=== PATIENT | female | born 1940 ===

== ENCOUNTER 2023-11-02 20:14 | Inpatient (IN) | payer MEDICARE, OTHER, SELFPAY ==
[2023-11-02 22:59] VITALS: BMI 25.4
[2023-11-02 23:00] VITALS: BP 163/74; PULSE 72; RESP 18; TEMP 36.2; O2SAT 96
--- NOTE | 2023-11-02 23:24 | PC.ADMIT ---
Admitted these 83 y.o. female patient per stretcher accompanied by ambulance staff w/ presenting problems of increase agitation, paranoia, aggression and increase behaviors. Pt arrived in the unit at 20:55h and she is Sec. 12B. Upon admission pt is pleasant on approached and cooperative w/ the admission process although towards the end pt is impatient. Pt is alert and oriented to person, place,time and situation. Skin check done w/ small scabbed area on the L lower arm and a Tattoo on upper R. back. Pt denies SI/HI/anxiety/depression/pain and feels safe in the unit. Pt has HX of general weakness, joint pain, osteoarthritis, bleeding ulcer, hiatal hernia, bladder problems and thyroid disease. Pt is independent in ADL S, ambulation and continent of B&B. No bruises, wounds or open areas noted on skin. Pt said she wears eyeglasses for reading and has upper and lower dentures. Dr. Dru Gunderson and the hospitalist notified of the admission. We ll continue to monitor patient.
--- NOTE | 2023-11-03 07:49 | HO.PSYADMNOT ---
HPI Date of Service: 11/03/23 Chief Complaint: Unspecified dementia, unspecified severity Sources of Information: patient interviewed, chart reviewed and crisis/core team assessment reviewed Additional Sources of Information: HCP- Darren (son) [phone] Shelby- ([id number]) [phone] HPI Subjective Notes: Section 12B Healthcare Proxy: Yes Narrative: Mrs. Almanza is an 83 year-old woman with hx of AD who initially was brought to [facility] on 10/13 due to combative behaviors, paranoid ideas in setting of dementia. She was started on seroquel. She was on observation in their psych obs unit and discharged on 10/30/23 to [facility] where she soon after arriving presented as combative, trying to hit other residents with metal towel dispenser, verbally abusive, trying to get out of the facility. She was brought back to [facility] ED same day. Pertinent labs include, cbc mostly unremarkable, cmp with no electrolytes abnormalities, BUN 14, Cr 0.81, creatinine clearance of 73. UA was negative. EKG on 10/23/23 normal sinus rhythm, non specific T wave abnormality. Qtc 424. She had brain MRI that showed moderate atrophy, periventricular and subcortical white matter and medical right frontal lobe atrophy. Pt seen on the unit. She presents as calm and cooperative but is not oriented to place, month, date or situation. She thinks she came here as volunteer. 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 She denies any physical pain. She reports sleeping and eating well. When asked about depression, she denies. No SI/HI. No overt psychosis or delusions during interview, but pt has been reporting that people are stealing from her. She also has difficulty recognizing family members including boyfriend of 9 years with whom she was living prior to being brought to ED who she thinks is a stranger. Collateral information gather from [id number], Shelby and son Darren, who report that mother has been living with DINA Saenz for 9 years, she has been more confused, not oriented, paranoid that people are stealing from her along from not recognizing Dany and thinking is an intruder. Shelby reports plan is for pt o stabilized from paranoid and combative behaviors and return to [facility]. Medical Evaluation Reviewed: Yes PMF Family History: mother had AD Social History: Pt was and . She has 4 children. 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 Substance History: none Trauma History: None reported. Diagnostics Vital Signs (24Hr): Vital Signs - 24 hr 11/02/23 23:00 Temperature 97.1 F Pulse Rate 72 Respiratory Rate 18 Blood Pressure 163/74 H Pulse Oximetry 96 Oxygen Delivery Method Room Air BMI result Body Mass Index 25.4 Labs 11/03/23 08:06 Meds/Allergies Meds Home Medications ?Medication ?Instructions ?Recorded ?Confirmed ?Type famotidine 40 mg tablet 40 mg PO BID 11/02/23 11/02/23 History hydroxyzine HCl 50 mg tablet 50 mg PO QID PRN Anxiety 11/02/23 11/02/23 History levothyroxine 137 mcg tablet 137 mcg PO QAM 11/02/23 11/02/23 History pantoprazole 40 mg tablet,delayed 40 mg PO QAM 11/02/23 11/02/23 History release propranolol 20 mg tablet 20 mg PO DAILY 11/02/23 11/02/23 History quetiapine 25 mg tablet 25 mg PO BID 11/02/23 11/02/23 History quetiapine 25 mg tablet 25 mg PO Q6H PRN Agitation 11/02/23 11/02/23 History trazodone 50 mg tablet 50 mg PO BEDTIME PRN Insomnia 11/02/23 11/02/23 History trazodone 50 mg tablet 100 mg PO BEDTIME 11/02/23 11/02/23 History Allergies Allergies Allergy/AdvReac Type Severity Reaction Status Date / Time No Known Allergies Allergy Verified 11/02/23 22:07 Mental Status Exam Mental Status Exam Narrative: Appearance: wearing casual clothing, good hygiene, in NAD Behavior: cooperative and friendly Psychomotor: no agitation or retardation noted Speech: clear, normal rate/rhythm/volume, spontaneous TP: linear TC: no overt psychosis or delusions, trying out this place, looks nice Mood: good Affect: congruent SI: none HI: none VH/AH: none Delusions: currently no overt delusions, confabulation noted, possible sundowning with more paranoid delusions Insight/judgment: impaired x 2. Memory/cog: alert, not oriented to place, month, year, date or situation. MOCA completed on 11/02 scored 12/03 with deficits in visuo spatial, executive function, recall, language fluency, orientation. ACL 4.4 Assessment & Plan Assessment & Plan (1) Major neurocognitive disorder due to Alzheimer's disease, with behavioral disturbance: Status: Acute Code(s): G30.9 - Alzheimer's disease, unspecified; F02.818 - Dementia in other diseases classified elsewhere, unspecified severity, with other behavioral disturbance Plan Mrs. Almanza is a 83 year-old woman with hx of AD who was sent from [facility] due to increase combative behaviors, hitting residens with metal towel dispenser, verbally abusive and thinking people were stealing from her. On the unit, pt presents as pleasant but not oriented to situation, place, month, or year. She does not have capacity to make medical decisions, pending copy of HCP to invoke. Discussed with daughter in law, Shelby and son, Darren that we can start aricept for AD, switch seroquel to risperidone. We also discussed her dementia is advanced. PLAN 1. Admit to S1, sect 12b. Once HCP invoked, HCP can sign CV. 2. start aricept 5mg po qhs 3. d/c seroquel, start risperidone 0.5mg po TID for delusions/agitation. prn olanzapine for agitation. 4. Hospitalist consult for medical H&P- noted SBP in 160's 5. aftercare planning. Patient educated on: diagnosis (and HCP as pt does not have capacity to make medical decisions.) and medication risk/benefits Reason for continued inpatient stay Substantial Risk for: harm to others and inability to function Statement Statement: I have reviewed the history and physical and performed a pertinent examination on my patient. No changes have occurred unless specified. If the History and Physical was not performed prior to admission, the Hospitalist's service will be consulted for completing the admission physical. Time Spent With Patient Time: Total time managing care of this patient today ____ minutes.
[2023-11-03 08:00] VITALS: BP 145/72; PULSE 75; RESP 15; TEMP 36.2; O2SAT 98
[2023-11-03 08:51] LABS: Estimated Average Glucose 117 mg/dL; Hemoglobin A1c % 5.7 % (<6.0)
[2023-11-03 09:00] LABS: Alanine Aminotransferase 9 U/L (0-31); Albumin Level 3.3 g/dL (3.5-5.0); Alkaline Phosphatase 64 U/L (39-117); Anion Gap 10 (12-20); Aspartate Amino Transferase 14 U/L (5-31); Bilirubin Total 0.4 mg/dL (0.0-1.0); Blood Urea Nitrogen 11 mg/dL (9-16); Calcium 9.1 mg/dL (8.4-10.2); Carbon Dioxide 29 mmol/L (22-29); Chloride 109 mmol/L (96-108); Cholesterol 136 mg/dL (<200); Creatinine Clr Calc Pharmacy 55.3; Estimated Glomerular Filt Rate > 60; Glucose Fasting 102 mg/dL (60-99); HDL Cholesterol 23 mg/dL (>40); LDL Cholesterol Calculated 96 mg/dL (<100); Sodium 144 mmol/L (135-145); Total Protein 5.8 g/dL (6.5-8.0); Triglycerides 89 mg/dL (<150)
[2023-11-03 09:16] LABS: TSH reflex Free T4 0.21 uIU/mL (0.32-4.0)
[2023-11-03 11:25] LABS: Free T4 (Free Thyroxine) 1.41 ng/dL (0.71-1.85)
[2023-11-03 13:39] VITALS: BP 148/70
[2023-11-03] MEDS: amLODIPine Besylate 2.5 MG TABLET PO (13:39)
[2023-11-03 13:40] VITALS: BP 148/70; PULSE 80
[2023-11-03] MEDS: Propranolol HCL 20 MG TABLET PO (13:40)
--- NOTE | 2023-11-03 15:54 | HO.PM.IMCN ---
History of Present Illness Data of Consult Service Date: 11/03/23 Primary Care Provider: Unknown Physician HPI Reason for consult: Admission H&P Pt is an 83-year-old female with a PMH significant for?HTN, hypothyroidism, GERD, and unspecified dementia who is admitted to [facility] for increasing agitation and disruptive behavior. Pt came from [facility] after attempted exit seeking, hitting other residents with metal towel dispenser, hitting staff, and displaying paranoid behavior. Medical consult for admission H&P. ?Pt seems calm and cooperative, answering some questions appropriately. Is oriented to person only, not the place, time, or situation. Pt denies any PMH and denies any current acute medical complaints. Review of Systems Review of Systems: Pt denies any acute medical complaints, though is OAx1 only [facility] Medical History (Updated 11/04/23 @ 01:20 by HSANA Jang) Hypothyroidism GERD (gastroesophageal reflux disease) HTN (hypertension) Social History Household Members: Children Housing: House Do you presently have visiting nurse or other home services: No Patient Tobacco Use Status: Former Tobacco user Tobacco use type: Cigarette Smoked in Last 30 Days: No e-Cigarette/Vaping Use: Never Used Patient Interested in Nicotine Replacement: No Patient Given Instructions on How to Stop Smoking: No Use of substances other than those prescribed or required for medical reasons: No Currently Displaying Signs/Symptoms of Drug Intoxication Withdrawal: No Any prior treatment program specific to substance use: No Have you been hit, kicked, punched, or otherwise hurt by someone within the past year? If so, by whom?: No Do you feel safe in your current relationship?: Yes Is there a partner from a previous relationship who is making you feel unsafe now?: No Are you made to feel afraid or neglected: No Advance Directives: No Advance Directives Information Provided: No Do you have thoughts of harming others: None Do you have a plan to hurt others: No Plan Recently lost weight without trying: No Nutrition Risks: No Nutritional Risk Patient : No : No Poor oral hygiene: No service: No Sexual orientation: Straight/Heterosexual Meds Allergies Allergy/AdvReac Type Severity Reaction Status Date / Time No Known Allergies Allergy Verified 11/02/23 22:07 Active Medications: Current Medications Acetaminophen (Acetaminophen 325 Mg Tablet) 650 mg PO Q6H PRN PRN Reason: Headache/Pain Mild Scale (1-3) Al Hydroxide/Mg Hydroxide (Magnesium Hydrox/Alum Hydrox 30 Ml Oral.Susp) 30 ml PO Q6H PRN PRN Reason: Heartburn/Nausea Amlodipine Besylate (Amlodipine Besylate 2.5 Mg Tablet) 2.5 mg PO DAILY [facility]; Protocol Last Admin: 11/03/23 13:39 Dose: 2.5 mg Donepezil HCl (Donepezil Hcl 5 Mg Tablet) 5 mg PO BEDTIME [facility] Levothyroxine Sodium 112 mcg/ (Levothyroxine Sodium 25 mcg) 137 mcg PO DAILY@0600 [facility] Magnesium Hydroxide (Milk Of Magnesia 30 Ml Oral.Susp) 30 ml PO DAILY PRN PRN Reason: Constipation Nicotine (Nicotine 21 Mg Patch.Td24) 21 mg TRANSDERMA DAILY PRN PRN Reason: smoking cessation Nicotine Polacrilex (Nicotine Polacrilex 2 Mg Gum) 4 mg BUCCAL Q2H PRN PRN Reason: Nicotine Cravings Olanzapine (Olanzapine 5 Mg Tablet) 5 mg PO Q4H PRN PRN Reason: agitation Propranolol HCl (Propranolol Hcl 20 Mg Tablet) 20 mg PO DAILY [facility]; Protocol Last Admin: 11/03/23 13:40 Dose: 20 mg Risperidone (Risperidone 0.5 Mg Tablet) 0.5 mg PO TID [facility] Trazodone HCl (Trazodone Hcl 50 Mg Tablet) 50 mg PO BEDTIME MRX1 PRN PRN Reason: Insomnia Home Medications ?Medication ?Instructions ?Recorded ?Confirmed ?Last Taken ?Type famotidine 40 mg tablet 40 mg PO BID 11/02/23 11/02/23 Unknown History hydroxyzine HCl 50 mg tablet 50 mg PO QID PRN Anxiety 11/02/23 11/02/23 Unknown History levothyroxine 137 mcg tablet 137 mcg PO QAM 11/02/23 11/02/23 Unknown History pantoprazole 40 mg tablet,delayed 40 mg PO QAM 11/02/23 11/02/23 Unknown History release propranolol 20 mg tablet 20 mg PO DAILY 11/02/23 11/02/23 Unknown History quetiapine 25 mg tablet 25 mg PO BID 11/02/23 11/02/23 Unknown History quetiapine 25 mg tablet 25 mg PO Q6H PRN Agitation 11/02/23 11/02/23 Unknown History trazodone 50 mg tablet 50 mg PO BEDTIME PRN Insomnia 11/02/23 11/02/23 Unknown History trazodone 50 mg tablet 100 mg PO BEDTIME 11/02/23 11/02/23 Unknown History Physical Exam Vital Signs and Narrative: Vital Signs: Last Vital Signs Temp 97.2 F 11/03/23 08:00 Pulse 80 11/03/23 13:40 Resp 15 11/03/23 08:00 BP 148/70 H 11/03/23 13:40 Pulse Ox 98 11/03/23 08:00 O2 Del Method Room Air 11/03/23 08:00 BMI result Body Mass Index 25.4 General: AOx1, no acute distress Resp: CTA bilaterally CVS: S1, S2, RRR GI: +BS, NT, no distention Skin: Warm, dry Neuro: Cranial nerves II-XII grossly intact bilaterally. Motor grossly intact bilaterally Extremities: No edema Psych: Appropriate affect Results Labs 11/03/23 08:06 Labs: Laboratory Results - last 24 hr 11/03/23 08:06 Anion Gap 10 L Estim Creat Clear Calc 55.3 Estimated GFR > 60 Fasting Glucose 102 H Estimat Average Glucose 117 Hemoglobin A1c % 5.7 Calcium 9.1 Total Bilirubin 0.4 AST 14 ALT 9 Alkaline Phosphatase 64 Total Protein 5.8 L Albumin 3.3 L Triglycerides 89 Cholesterol 136 LDL Cholesterol, Calc 96 HDL Cholesterol 23 L TSH 0.21 L Free T4 1.41 Assessment and Plan (1) Medical clearance for psychiatric admission: Status: Acute Plan Pt is an 83-year-old female with a PMH significant for?HTN, hypothyroidism, GERD, and unspecified dementia who is admitted to [facility] for increasing agitation and disruptive behavior. Pt came from [facility] care unit after attempted exit seeking, hitting other residents with metal towel dispenser, hitting staff, and displaying paranoid behavior. Medical consult for admission H&P. Mood disorder Plan as per psychiatry HTN Continue propranolol Hypothyroidsim Continue levothyroxine GERD PPI Thank you for allowing us to participate in the care of this patient. Signing off at this time. Please re-consult if any acute complaints or issues arise.
[2023-11-03] MEDS: risperiDONE 0.5 MG TABLET PO ×2 (16:47→20:42)
[2023-11-03 20:00] VITALS: BP 175/68; PULSE 75; RESP 16; TEMP 36.4; O2SAT 93
[2023-11-03] MEDS: Donepezil HCl 5 MG TABLET PO (20:42)
[2023-11-04] MEDS: Levothyroxine Sodium 112 MCG, Levothyroxine Sodium 25 MCG 137 MCG PO (06:41)
--- NOTE | 2023-11-04 08:57 | HO.PSYCHPN ---
Subjective Subjective Date of Service: 11/04/23 Reason For Visit: Unspecified dementia, unspecified severity Interim History: Pt seen, reviewed with team. I am well, thank you for coming to meet with us (Pt enjoys room-mate and asks to meet with her present). Team reports some agitation last evening, with adequate sleep. Pt denies any symptoms, states she is well, comfortable on the unit, but finds the air conditioning too cold. Medication Compliance: Yes Side effects from medications: No Attending Groups: Intermittent Review of Systems Acute medical concerns: No Medical Review of Systems: unchanged Review of Systems Review of Systems Yes all other systems are reviewed and are negative (denies) Mental Status Exam Mental Status Exam Patient Appearance: Appropriate Patient Orientation: Person Level of Consciousness: Alert Patient Behavior: Appropriate, Talkative, Cooperative, Confused and Good Eye Contact Mood Description: Appropriate Affect Description: Appropriate Patient Cognition Impaired: Yes Ability to Follow Directions: Fair Speech Pattern: Spontaneous Speech Memory Description: Remote Impaired Hallucinations: None Delusions: Not Present Thought Process: Confusion Thought Content: positive for Circumstantial Judgement: Poor Diagnostics Vital Signs (24Hr): Vital Signs - 24 hr 11/03/23 13:39 11/03/23 13:40 11/03/23 20:00 Temperature 97.5 F Pulse Rate 80 75 Respiratory Rate 16 Blood Pressure 148/70 H 148/70 H 175/68 H Pulse Oximetry 93 Oxygen Delivery Method Room Air BMI result Body Mass Index 25.4 Labs 11/03/23 08:06 Labs: Laboratory Results - last 48 hr 11/03/23 08:06 Sodium 144 Potassium 4.0 Chloride 109 H Carbon Dioxide 29 Anion Gap 10 L BUN 11 Creatinine 0.75 Estim Creat Clear Calc 55.3 Estimated GFR > 60 Fasting Glucose 102 H Estimat Average Glucose 117 Hemoglobin A1c % 5.7 Calcium 9.1 Total Bilirubin 0.4 AST 14 ALT 9 Alkaline Phosphatase 64 Total Protein 5.8 L Albumin 3.3 L Triglycerides 89 Cholesterol 136 LDL Cholesterol, Calc 96 HDL Cholesterol 23 L TSH 0.21 L Free T4 1.41 Medications Medications Current Medications Acetaminophen (Acetaminophen 325 Mg Tablet) 650 mg PO Q6H PRN PRN Reason: Headache/Pain Mild Scale (1-3) Al Hydroxide/Mg Hydroxide (Magnesium Hydrox/Alum Hydrox 30 Ml Oral.Susp) 30 ml PO Q6H PRN PRN Reason: Heartburn/Nausea Amlodipine Besylate (Amlodipine Besylate 2.5 Mg Tablet) 2.5 mg PO DAILY [facility]; Protocol Last Admin: 11/03/23 13:39 Dose: 2.5 mg Donepezil HCl (Donepezil Hcl 5 Mg Tablet) 5 mg PO BEDTIME [facility] Last Admin: 11/03/23 20:42 Dose: 5 mg Levothyroxine Sodium 112 mcg/ (Levothyroxine Sodium 25 mcg) 137 mcg PO DAILY@0600 [facility] Last Admin: 11/04/23 06:41 Dose: 137 mcg Magnesium Hydroxide (Milk Of Magnesia 30 Ml Oral.Susp) 30 ml PO DAILY PRN PRN Reason: Constipation Nicotine (Nicotine 21 Mg Patch.Td24) 21 mg TRANSDERMA DAILY PRN PRN Reason: smoking cessation Nicotine Polacrilex (Nicotine Polacrilex 2 Mg Gum) 4 mg BUCCAL Q2H PRN PRN Reason: Nicotine Cravings Olanzapine (Olanzapine 5 Mg Tablet) 5 mg PO Q4H PRN PRN Reason: agitation Propranolol HCl (Propranolol Hcl 20 Mg Tablet) 20 mg PO DAILY [facility]; Protocol Last Admin: 11/03/23 13:40 Dose: 20 mg Risperidone (Risperidone 0.5 Mg Tablet) 0.5 mg PO TID [facility] Last Admin: 11/03/23 20:42 Dose: 0.5 mg Trazodone HCl (Trazodone Hcl 50 Mg Tablet) 50 mg PO BEDTIME MRX1 PRN PRN Reason: Insomnia Allergies Allergies Allergy/AdvReac Type Severity Reaction Status Date / Time No Known Allergies Allergy Verified 11/02/23 22:07 Assessment & Plan Assessment & Plan (1) Major neurocognitive disorder due to Alzheimer's disease, with behavioral disturbance: Status: Acute Code(s): G30.9 - Alzheimer's disease, unspecified; F02.818 - Dementia in other diseases classified elsewhere, unspecified severity, with other behavioral disturbance Assessment and Plan: 11/03: Continue tx Plan Pt is an 83-year-old female with a PMH significant for?HTN, hypothyroidism, GERD, and unspecified dementia who is admitted to [facility] for increasing agitation and disruptive behavior. Pt came from [facility] care unit after attempted exit seeking, hitting other residents with metal towel dispenser, hitting staff, and displaying paranoid behavior. Medical consult for admission H&P. Mood disorder Plan as per psychiatry HTN Continue propranolol Hypothyroidsim Continue levothyroxine GERD PPI Thank you for allowing us to participate in the care of this patient. Signing off at this time. Please re-consult if any acute complaints or issues arise. Reason for continued inpatient stay Substantial Risk for: rapid decompensation Time Spent With Patient Time: Total time managing care of this patient today ____ minutes.
[2023-11-04 09:27] VITALS: BP 133/61; PULSE 71; RESP 20; TEMP 36.2; O2SAT 95
[2023-11-04] MEDS: Propranolol HCL 20 MG TABLET PO (09:46)
[2023-11-04] MEDS: amLODIPine Besylate 2.5 MG TABLET PO (09:47)
[2023-11-04] MEDS: risperiDONE 0.5 MG TABLET PO ×3 (09:47→20:36)
[2023-11-04 20:00] VITALS: BP 143/67; PULSE 77; RESP 16; TEMP 36.3; O2SAT 96
[2023-11-04] MEDS: Donepezil HCl 5 MG TABLET PO (20:36)
[2023-11-05] MEDS: Levothyroxine Sodium 112 MCG, Levothyroxine Sodium 25 MCG 137 MCG PO (06:20)
[2023-11-05 08:01] VITALS: BP 129/66; PULSE 84; RESP 20; TEMP 36.4; O2SAT 98
[2023-11-05] MEDS: Propranolol HCL 20 MG TABLET PO (08:03)
[2023-11-05] MEDS: amLODIPine Besylate 2.5 MG TABLET PO (08:03)
[2023-11-05] MEDS: risperiDONE 0.5 MG TABLET PO ×3 (08:03→20:02)
--- NOTE | 2023-11-05 16:18 | P.PNPSI_ITS ---
Subjective Subjective Date of Service: 11/05/23 Reason For Visit: Unspecified dementia, unspecified severity Interim History: Pt seen, reviewed with team who reports increase in confusion. Pt also has head tremor which is noticed by team and tw today. Will trial benztropine 0.5 mg prn x 1 Pt again denies sx of concern, reports no depression, anxiety, irritability. She continues to spend time with room-mate and seems to received needed structure from room-mate. Review of Systems Review of Systems head tremor Yes all other systems are reviewed and are negative (denies) Mental Status Exam Mental Status Exam Patient Appearance: Appropriate Patient Orientation: Person Level of Consciousness: Alert Patient Behavior: Appropriate, Talkative, Cooperative, Confused and Good Eye Contact Mood Description: Appropriate Affect Description: Appropriate Patient Cognition Impaired: Yes Ability to Follow Directions: Fair Speech Pattern: Spontaneous Speech Memory Description: Remote Impaired Hallucinations: None Delusions: Not Present Thought Process: Confusion Thought Content: positive for Circumstantial Judgement: Poor Diagnostics Vital Signs (24Hr): Vital Signs - 24 hr 11/04/23 20:00 11/05/23 08:01 Temperature 97.3 F 97.5 F Pulse Rate 77 84 Respiratory Rate 16 20 Blood Pressure 143/67 H 129/66 Pulse Oximetry 96 98 Oxygen Delivery Method Room Air Room Air BMI result Body Mass Index 25.4 Labs 11/03/23 08:06 Medications Medications Current Medications Acetaminophen (Acetaminophen 325 Mg Tablet) 650 mg PO Q6H PRN PRN Reason: Headache/Pain Mild Scale (1-3) Al Hydroxide/Mg Hydroxide (Magnesium Hydrox/Alum Hydrox 30 Ml Oral.Susp) 30 ml PO Q6H PRN PRN Reason: Heartburn/Nausea Amlodipine Besylate (Amlodipine Besylate 2.5 Mg Tablet) 2.5 mg PO DAILY [facility]; Protocol Last Admin: 11/05/23 08:03 Dose: 2.5 mg Benztropine Mesylate (Benztropine Mesylate 0.5 Mg Tablet) 0.5 mg PO DAILY PRN PRN Reason: Extrapyramidal Effects Donepezil HCl (Donepezil Hcl 5 Mg Tablet) 5 mg PO BEDTIME [facility] Last Admin: 11/04/23 20:36 Dose: 5 mg Levothyroxine Sodium 112 mcg/ (Levothyroxine Sodium 25 mcg) 137 mcg PO DAILY@0600 [facility] Last Admin: 11/05/23 06:20 Dose: 137 mcg Magnesium Hydroxide (Milk Of Magnesia 30 Ml Oral.Susp) 30 ml PO DAILY PRN PRN Reason: Constipation Nicotine (Nicotine 21 Mg Patch.Td24) 21 mg TRANSDERMA DAILY PRN PRN Reason: smoking cessation Nicotine Polacrilex (Nicotine Polacrilex 2 Mg Gum) 4 mg BUCCAL Q2H PRN PRN Reason: Nicotine Cravings Olanzapine (Olanzapine 5 Mg Tablet) 5 mg PO Q4H PRN PRN Reason: agitation Propranolol HCl (Propranolol Hcl 20 Mg Tablet) 20 mg PO DAILY [facility]; Protocol Last Admin: 11/05/23 08:03 Dose: 20 mg Risperidone (Risperidone 0.5 Mg Tablet) 0.5 mg PO TID [facility] Last Admin: 11/05/23 15:13 Dose: 0.5 mg Trazodone HCl (Trazodone Hcl 50 Mg Tablet) 50 mg PO BEDTIME MRX1 PRN PRN Reason: Insomnia Allergies Allergies Allergy/AdvReac Type Severity Reaction Status Date / Time No Known Allergies Allergy Verified 11/02/23 22:07 Assessment & Plan Assessment & Plan (1) Medical clearance for psychiatric admission: Status: Acute Code(s): Z00.8 - Encounter for other general examination (2) Major neurocognitive disorder due to Alzheimer's disease, with behavioral disturbance: Status: Acute Code(s): G30.9 - Alzheimer's disease, unspecified; F02.818 - Dementia in other diseases classified elsewhere, unspecified severity, with other behavioral disturbance Assessment and Plan: 11/04: Continue tx. Plan Pt is an 83-year-old female with a PMH significant for?HTN, hypothyroidism, GERD, and unspecified dementia who is admitted to [facility] for increasing agitation and disruptive behavior. Pt came from [facility] memory care unit after attempted exit seeking, hitting other residents with metal towel dispenser, hitting staff, and displaying paranoid behavior. Medical consult for admission H&P. Mood disorder Plan as per psychiatry HTN Continue propranolol Hypothyroidsim Continue levothyroxine GERD PPI Thank you for allowing us to participate in the care of this patient. Signing off at this time. Please re-consult if any acute complaints or issues arise. Reason for continued inpatient stay Substantial Risk for: rapid decompensation Time Spent With Patient Time: Total time managing care of this patient today ____ minutes.
[2023-11-05 20:00] VITALS: BP 123/58; PULSE 80; RESP 16; TEMP 36.3; O2SAT 94
[2023-11-05] MEDS: Donepezil HCl 5 MG TABLET PO (20:01)
[2023-11-06] MEDS: traZODone HCL 50 MG TABLET PO (00:41)
[2023-11-06] MEDS: Levothyroxine Sodium 112 MCG, Levothyroxine Sodium 25 MCG 137 MCG PO (06:29)
[2023-11-06 08:00] VITALS: BP 152/63; PULSE 85; RESP 18; TEMP 36.2; O2SAT 97
[2023-11-06 08:30] VITALS: BP 152/63; PULSE 85
[2023-11-06] MEDS: Propranolol HCL 20 MG TABLET PO (08:30)
[2023-11-06 08:31] VITALS: BP 152/63
[2023-11-06] MEDS: amLODIPine Besylate 2.5 MG TABLET PO (08:31)
[2023-11-06] MEDS: risperiDONE 0.5 MG TABLET PO ×3 (08:31→20:52)
--- NOTE | 2023-11-06 08:39 | P.PNPSI_ITS ---
Subjective Subjective Date of Service: 11/06/23 Reason For Visit: Unspecified dementia, unspecified severity Interim History: Met with pt, reviewed with her team. She reports poor sleep last night as she states she is reading [employer] which she finds interesting. She reviewed the plot. Well engaged with her room-mate. Room-mate reports pt has been awake most of the evening/night and with frequent BRIANNA Medication Compliance: Yes Side effects from medications: No Attending Groups: Intermittent Review of Systems Acute medical concerns: No Medical Review of Systems: unchanged Review of Systems Review of Systems Yes all other systems are reviewed and are negative (denies) Mental Status Exam Mental Status Exam Patient Appearance: Appropriate Patient Orientation: Person Level of Consciousness: Alert Patient Behavior: Appropriate, Talkative, Cooperative, Confused and Good Eye Contact Mood Description: Appropriate Affect Description: Appropriate Patient Cognition Impaired: Yes Ability to Follow Directions: Fair Speech Pattern: Spontaneous Speech Memory Description: Remote Impaired Hallucinations: None Delusions: Not Present Thought Process: Confusion Thought Content: positive for Circumstantial Judgement: Poor Diagnostics Vital Signs (24Hr): Vital Signs - 24 hr 11/05/23 20:00 11/06/23 08:30 11/06/23 08:31 Temperature 97.3 F Pulse Rate 80 85 Respiratory Rate 16 Blood Pressure 123/58 L 152/63 H 152/63 H Pulse Oximetry 94 Oxygen Delivery Method Room Air BMI result Body Mass Index 25.4 Labs 11/03/23 08:06 Medications Medications Current Medications Acetaminophen (Acetaminophen 325 Mg Tablet) 650 mg PO Q6H PRN PRN Reason: Headache/Pain Mild Scale (1-3) Al Hydroxide/Mg Hydroxide (Magnesium Hydrox/Alum Hydrox 30 Ml Oral.Susp) 30 ml PO Q6H PRN PRN Reason: Heartburn/Nausea Amlodipine Besylate (Amlodipine Besylate 2.5 Mg Tablet) 2.5 mg PO DAILY [facility]; Protocol Last Admin: 11/06/23 08:31 Dose: 2.5 mg Benztropine Mesylate (Benztropine Mesylate 0.5 Mg Tablet) 0.5 mg PO DAILY PRN PRN Reason: Extrapyramidal Effects Donepezil HCl (Donepezil Hcl 5 Mg Tablet) 5 mg PO BEDTIME [facility] Last Admin: 11/05/23 20:01 Dose: 5 mg Levothyroxine Sodium 112 mcg/ (Levothyroxine Sodium 25 mcg) 137 mcg PO DAILY@0600 [facility] Last Admin: 11/06/23 06:29 Dose: 137 mcg Magnesium Hydroxide (Milk Of Magnesia 30 Ml Oral.Susp) 30 ml PO DAILY PRN PRN Reason: Constipation Nicotine (Nicotine 21 Mg Patch.Td24) 21 mg TRANSDERMA DAILY PRN PRN Reason: smoking cessation Nicotine Polacrilex (Nicotine Polacrilex 2 Mg Gum) 4 mg BUCCAL Q2H PRN PRN Reason: Nicotine Cravings Olanzapine (Olanzapine 5 Mg Tablet) 5 mg PO Q4H PRN PRN Reason: agitation Propranolol HCl (Propranolol Hcl 20 Mg Tablet) 20 mg PO DAILY [facility]; Protocol Last Admin: 11/06/23 08:30 Dose: 20 mg Risperidone (Risperidone 0.5 Mg Tablet) 0.5 mg PO TID [facility] Last Admin: 11/06/23 08:31 Dose: 0.5 mg Trazodone HCl (Trazodone Hcl 50 Mg Tablet) 50 mg PO BEDTIME MRX1 PRN PRN Reason: Insomnia Last Admin: 11/06/23 00:41 Dose: 50 mg Allergies Allergies Allergy/AdvReac Type Severity Reaction Status Date / Time No Known Allergies Allergy Verified 11/02/23 22:07 Assessment & Plan Assessment & Plan (1) Medical clearance for psychiatric admission: Status: Acute Code(s): Z00.8 - Encounter for other general examination (2) Major neurocognitive disorder due to Alzheimer's disease, with behavioral disturbance: Status: Acute Code(s): G30.9 - Alzheimer's disease, unspecified; F02.818 - Dementia in other diseases classified elsewhere, unspecified severity, with other behavioral disturbance Assessment and Plan: 11/04: Continue tx. 11/05: Continue tx. PRN Olanzapine for agitation is ordered. Plan Pt is an 83-year-old female with a PMH significant for?HTN, hypothyroidism, GERD, and unspecified dementia who is admitted to [facility] for increasing agitation and disruptive behavior. Pt came from [facility] memory care unit after attempted exit seeking, hitting other residents with metal towel dispenser, hitting staff, and displaying paranoid behavior. Medical consult for admission H&P. Mood disorder Plan as per psychiatry HTN Continue propranolol Hypothyroidsim Continue levothyroxine GERD PPI Thank you for allowing us to participate in the care of this patient. Signing off at this time. Please re-consult if any acute complaints or issues arise. Reason for continued inpatient stay Substantial Risk for: med/psych decompensation Time Spent With Patient Time: Total time managing care of this patient today ____ minutes.
[2023-11-06 20:00] VITALS: BP 130/58; PULSE 76; RESP 16; TEMP 37.1; O2SAT 94
[2023-11-06] MEDS: Donepezil HCl 5 MG TABLET PO (20:52)
[2023-11-07] MEDS: Levothyroxine Sodium 112 MCG, Levothyroxine Sodium 25 MCG 137 MCG PO (06:37)
--- NOTE | 2023-11-07 09:16 | HO.PSYCHPN ---
Subjective Subjective Date of Service: 11/07/23 Reason For Visit: Unspecified dementia, unspecified severity Subjective Notes: Conditional Voluntary Healthcare Proxy: Yes Interim History: Pt slept only few hours at times. Pt tearful thinking son is stealing from her and taking her bank account. She is confused as to why she is here, thinks she has been here for 2 months. Not oriented to place, situation. reassured that son is trying to help her with memory/cognitive impairments as she is not able to care for herself. No SI/HI. Review of Systems Review of Systems head tremor Yes all other systems are reviewed and are negative (denies) Mental Status Exam Mental Status Exam Narrative: Appearance: wearing casual clothing, good hygiene, in NAD Behavior: cooperative and friendly Psychomotor: no agitation or retardation noted Speech: clear, normal rate/rhythm/volume, spontaneous TP: linear TC: no overt psychosis or delusions, trying out this place, looks nice Mood: good Affect: congruent SI: none HI: none VH/AH: none Delusions: currently no overt delusions, confabulation noted, possible sundowning with more paranoid delusions Insight/judgment: impaired x 2. Memory/cog: alert, not oriented to place, month, year, date or situation. MOCA completed on 11/02 scored 12/03 with deficits in visuo spatial, executive function, recall, language fluency, orientation. ACL 4.4 Diagnostics Vital Signs (24Hr): Vital Signs - 24 hr 11/06/23 20:00 Temperature 98.7 F Pulse Rate 76 Respiratory Rate 16 Blood Pressure 130/58 L Pulse Oximetry 94 Oxygen Delivery Method Room Air BMI result Body Mass Index 25.4 Labs 11/03/23 08:06 Medications Medications Current Medications Acetaminophen (Acetaminophen 325 Mg Tablet) 650 mg PO Q6H PRN PRN Reason: Headache/Pain Mild Scale (1-3) Al Hydroxide/Mg Hydroxide (Magnesium Hydrox/Alum Hydrox 30 Ml Oral.Susp) 30 ml PO Q6H PRN PRN Reason: Heartburn/Nausea Amlodipine Besylate (Amlodipine Besylate 2.5 Mg Tablet) 2.5 mg PO DAILY [facility]; Protocol Last Admin: 11/06/23 08:31 Dose: 2.5 mg Benztropine Mesylate (Benztropine Mesylate 0.5 Mg Tablet) 0.5 mg PO DAILY PRN PRN Reason: Extrapyramidal Effects Donepezil HCl (Donepezil Hcl 5 Mg Tablet) 5 mg PO BEDTIME [facility] Last Admin: 11/06/23 20:52 Dose: 5 mg Levothyroxine Sodium 112 mcg/ (Levothyroxine Sodium 25 mcg) 137 mcg PO DAILY@0600 [facility] Last Admin: 11/07/23 06:37 Dose: 137 mcg Magnesium Hydroxide (Milk Of Magnesia 30 Ml Oral.Susp) 30 ml PO DAILY PRN PRN Reason: Constipation Nicotine (Nicotine 21 Mg Patch.Td24) 21 mg TRANSDERMA DAILY PRN PRN Reason: smoking cessation Nicotine Polacrilex (Nicotine Polacrilex 2 Mg Gum) 4 mg BUCCAL Q2H PRN PRN Reason: Nicotine Cravings Olanzapine (Olanzapine 5 Mg Tablet) 5 mg PO Q4H PRN PRN Reason: agitation Propranolol HCl (Propranolol Hcl 20 Mg Tablet) 20 mg PO DAILY [facility]; Protocol Last Admin: 11/06/23 08:30 Dose: 20 mg Risperidone (Risperidone 0.5 Mg Tablet) 0.5 mg PO TID [facility] Last Admin: 11/06/23 20:52 Dose: 0.5 mg Trazodone HCl (Trazodone Hcl 50 Mg Tablet) 50 mg PO BEDTIME MRX1 PRN PRN Reason: Insomnia Last Admin: 11/06/23 00:41 Dose: 50 mg Allergies Allergies Allergy/AdvReac Type Severity Reaction Status Date / Time No Known Allergies Allergy Verified 11/02/23 22:07 Assessment & Plan Assessment & Plan (1) Major neurocognitive disorder due to Alzheimer's disease, with behavioral disturbance: Status: Acute Code(s): G30.9 - Alzheimer's disease, unspecified; F02.818 - Dementia in other diseases classified elsewhere, unspecified severity, with other behavioral disturbance Assessment and Plan: 11/04: Continue tx. 11/05: Continue tx. PRN Olanzapine for agitation is ordered. Plan Pt is an 83-year-old female with a PMH significant for?HTN, hypothyroidism, GERD, and unspecified dementia who is admitted to [facility] for increasing agitation and disruptive behavior. Pt came from [facility] care unit after attempted exit seeking, hitting other residents with metal towel dispenser, hitting staff, and displaying paranoid behavior. Medical consult for admission H&P. 11/06 no aggression, taking medications, some bilat action tremors, suspect exacerbated with risperidone. may change to olanzapine Reason for continued inpatient stay Substantial Risk for: inability to function Time Spent With Patient Time: Total time managing care of this patient today ____ minutes.
[2023-11-07 09:34] VITALS: BP 131/71; PULSE 84; RESP 15; TEMP 36.9; O2SAT 99
[2023-11-07] MEDS: Propranolol HCL 20 MG TABLET PO (09:35)
[2023-11-07] MEDS: risperiDONE 0.5 MG TABLET PO ×3 (09:36→21:25)
[2023-11-07] MEDS: amLODIPine Besylate 2.5 MG TABLET PO (09:36)
[2023-11-07 20:00] VITALS: BP 136/66; PULSE 86; RESP 18; TEMP 36.4; O2SAT 97
[2023-11-07] MEDS: Donepezil HCl 5 MG TABLET PO (21:25)
[2023-11-08] MEDS: Levothyroxine Sodium 112 MCG, Levothyroxine Sodium 25 MCG 137 MCG PO (06:25)
[2023-11-08 09:03] VITALS: BP 131/63; PULSE 76; RESP 20; TEMP 36.4; O2SAT 98
[2023-11-08] MEDS: amLODIPine Besylate 2.5 MG TABLET PO (09:05)
[2023-11-08] MEDS: risperiDONE 0.5 MG TABLET PO ×3 (09:05→21:29)
[2023-11-08] MEDS: Propranolol HCL 20 MG TABLET PO (09:05)
--- NOTE | 2023-11-08 15:11 | HO.PSYCHPN ---
Subjective Subjective Date of Service: 11/08/23 Reason For Visit: Unspecified dementia, unspecified severity Subjective Notes: Conditional Voluntary Interim History: Pt intermittently crying, mostly as she is confused as to why she is here and continues to report that she believes family is doing things behind her back. Pt reassured when told family meeting is happening soon. She denies SI/HI. No aggression towards self or others. Review of Systems Review of Systems head tremor Yes all other systems are reviewed and are negative (denies) Mental Status Exam Mental Status Exam Narrative: Appearance: wearing casual clothing, good hygiene, in NAD Behavior: cooperative and friendly Psychomotor: no agitation or retardation noted Speech: clear, normal rate/rhythm/volume, spontaneous TP: linear TC: no overt psychosis or delusions, trying out this place, looks nice Mood: good Affect: congruent SI: none HI: none VH/AH: none Delusions: currently no overt delusions, confabulation noted, possible sundowning with more paranoid delusions Insight/judgment: impaired x 2. Memory/cog: alert, not oriented to place, month, year, date or situation. MOCA completed on 11/02 scored 12/03 with deficits in visuo spatial, executive function, recall, language fluency, orientation. ACL 4.4 Diagnostics Vital Signs (24Hr): Vital Signs - 24 hr 11/07/23 20:00 11/08/23 09:03 Temperature 97.6 F 97.6 F Pulse Rate 86 76 Respiratory Rate 18 20 Blood Pressure 136/66 131/63 Pulse Oximetry 97 98 Oxygen Delivery Method Room Air Room Air BMI result Body Mass Index 25.4 Labs 11/03/23 08:06 Medications Medications Current Medications Acetaminophen (Acetaminophen 325 Mg Tablet) 650 mg PO Q6H PRN PRN Reason: Headache/Pain Mild Scale (1-3) Al Hydroxide/Mg Hydroxide (Magnesium Hydrox/Alum Hydrox 30 Ml Oral.Susp) 30 ml PO Q6H PRN PRN Reason: Heartburn/Nausea Amlodipine Besylate (Amlodipine Besylate 2.5 Mg Tablet) 2.5 mg PO DAILY [facility]; Protocol Last Admin: 11/08/23 09:05 Dose: 2.5 mg Benztropine Mesylate (Benztropine Mesylate 0.5 Mg Tablet) 0.5 mg PO DAILY PRN PRN Reason: Extrapyramidal Effects Donepezil HCl (Donepezil Hcl 5 Mg Tablet) 5 mg PO BEDTIME [facility] Last Admin: 11/07/23 21:25 Dose: 5 mg Levothyroxine Sodium 112 mcg/ (Levothyroxine Sodium 25 mcg) 137 mcg PO DAILY@0600 [facility] Last Admin: 11/08/23 06:25 Dose: 137 mcg Magnesium Hydroxide (Milk Of Magnesia 30 Ml Oral.Susp) 30 ml PO DAILY PRN PRN Reason: Constipation Nicotine (Nicotine 21 Mg Patch.Td24) 21 mg TRANSDERMA DAILY PRN PRN Reason: smoking cessation Nicotine Polacrilex (Nicotine Polacrilex 2 Mg Gum) 4 mg BUCCAL Q2H PRN PRN Reason: Nicotine Cravings Olanzapine (Olanzapine 5 Mg Tablet) 5 mg PO Q4H PRN PRN Reason: agitation Propranolol HCl (Propranolol Hcl 20 Mg Tablet) 20 mg PO DAILY [facility]; Protocol Last Admin: 11/08/23 09:05 Dose: 20 mg Risperidone (Risperidone 0.5 Mg Tablet) 0.5 mg PO TID [facility] Last Admin: 11/08/23 14:34 Dose: 0.5 mg Trazodone HCl (Trazodone Hcl 50 Mg Tablet) 50 mg PO BEDTIME MRX1 PRN PRN Reason: Insomnia Last Admin: 11/06/23 00:41 Dose: 50 mg Allergies Allergies Allergy/AdvReac Type Severity Reaction Status Date / Time No Known Allergies Allergy Verified 11/02/23 22:07 Assessment & Plan Assessment & Plan (1) Major neurocognitive disorder due to Alzheimer's disease, with behavioral disturbance: Status: Acute Code(s): G30.9 - Alzheimer's disease, unspecified; F02.818 - Dementia in other diseases classified elsewhere, unspecified severity, with other behavioral disturbance Assessment and Plan: 11/04: Continue tx. 11/05: Continue tx. PRN Olanzapine for agitation is ordered. Plan Pt is an 83-year-old female with a PMH significant for?HTN, hypothyroidism, GERD, and unspecified dementia who is admitted to [facility] for increasing agitation and disruptive behavior. Pt came from [facility] memory care unit after attempted exit seeking, hitting other residents with metal towel dispenser, hitting staff, and displaying paranoid behavior. Medical consult for admission H&P. 11/06 no aggression, taking medications, some bilat action tremors, suspect exacerbated with risperidone. may change to olanzapine 11/07- decrease risperidone to 0.5mg po BID due to tremors. scheduled dose of trazodone 50mg po qhs. Reason for continued inpatient stay Substantial Risk for: inability to function Time Spent With Patient Time: Total time managing care of this patient today ____ minutes.
[2023-11-08 20:00] VITALS: BP 132/60; PULSE 78; RESP 16; TEMP 36.7; O2SAT 96
[2023-11-08] MEDS: traZODone HCL 50 MG TABLET PO (21:29)
[2023-11-08] MEDS: Donepezil HCl 5 MG TABLET PO (21:29)
[2023-11-09] MEDS: Levothyroxine Sodium 112 MCG, Levothyroxine Sodium 25 MCG 137 MCG PO (05:55)
[2023-11-09 08:26] VITALS: BP 143/65; PULSE 88; RESP 16; TEMP 36.1; O2SAT 97
[2023-11-09] MEDS: amLODIPine Besylate 2.5 MG TABLET PO (08:34)
[2023-11-09] MEDS: Propranolol HCL 20 MG TABLET PO (08:34)
[2023-11-09] MEDS: risperiDONE 0.5 MG TABLET PO ×2 (08:34→19:57)
--- NOTE | 2023-11-09 10:20 | HO.PSYCHPN ---
Subjective Subjective Date of Service: 11/09/23 Reason For Visit: Unspecified dementia, unspecified severity Subjective Notes: Conditional Voluntary Interim History: Pt slept about 4hrs. She has difficulty sleeping but no combative behaviors nor agitation. She is pleasant on approach. She attends groups. Family meeting held, discussed dx of AD. medications she is currently on. Increase trazodone for sleep. Review of Systems Review of Systems head tremor Yes all other systems are reviewed and are negative (denies) Mental Status Exam Mental Status Exam Narrative: Appearance: wearing casual clothing, good hygiene, in NAD Behavior: cooperative and friendly Psychomotor: no agitation or retardation noted Speech: clear, normal rate/rhythm/volume, spontaneous TP: linear TC: no overt psychosis or delusions, trying out this place, looks nice Mood: good Affect: congruent SI: none HI: none VH/AH: none Delusions: currently no overt delusions, confabulation noted, possible sundowning with more paranoid delusions Insight/judgment: impaired x 2. Memory/cog: alert, not oriented to place, month, year, date or situation. MOCA completed on 11/02 scored 12/03 with deficits in visuo spatial, executive function, recall, language fluency, orientation. ACL 4.4 Diagnostics Vital Signs (24Hr): Vital Signs - 24 hr 11/08/23 20:00 11/09/23 08:26 Temperature 98.1 F 96.9 F Pulse Rate 78 88 Respiratory Rate 16 16 Blood Pressure 132/60 143/65 H Pulse Oximetry 96 97 Oxygen Delivery Method Room Air Room Air BMI result Body Mass Index 25.4 Labs 11/03/23 08:06 Medications Medications Current Medications Acetaminophen (Acetaminophen 325 Mg Tablet) 650 mg PO Q6H PRN PRN Reason: Headache/Pain Mild Scale (1-3) Al Hydroxide/Mg Hydroxide (Magnesium Hydrox/Alum Hydrox 30 Ml Oral.Susp) 30 ml PO Q6H PRN PRN Reason: Heartburn/Nausea Amlodipine Besylate (Amlodipine Besylate 2.5 Mg Tablet) 2.5 mg PO DAILY [facility]; Protocol Last Admin: 11/09/23 08:34 Dose: 2.5 mg Benztropine Mesylate (Benztropine Mesylate 0.5 Mg Tablet) 0.5 mg PO DAILY PRN PRN Reason: Extrapyramidal Effects Donepezil HCl (Donepezil Hcl 5 Mg Tablet) 5 mg PO BEDTIME [facility] Last Admin: 11/08/23 21:29 Dose: 5 mg Levothyroxine Sodium 112 mcg/ (Levothyroxine Sodium 25 mcg) 137 mcg PO DAILY@0600 [facility] Last Admin: 11/09/23 05:55 Dose: 137 mcg Magnesium Hydroxide (Milk Of Magnesia 30 Ml Oral.Susp) 30 ml PO DAILY PRN PRN Reason: Constipation Nicotine (Nicotine 21 Mg Patch.Td24) 21 mg TRANSDERMA DAILY PRN PRN Reason: smoking cessation Nicotine Polacrilex (Nicotine Polacrilex 2 Mg Gum) 4 mg BUCCAL Q2H PRN PRN Reason: Nicotine Cravings Olanzapine (Olanzapine 5 Mg Tablet) 5 mg PO Q4H PRN PRN Reason: agitation Propranolol HCl (Propranolol Hcl 20 Mg Tablet) 20 mg PO DAILY [facility]; Protocol Last Admin: 11/09/23 08:34 Dose: 20 mg Risperidone (Risperidone 0.5 Mg Tablet) 0.5 mg PO BID [facility] Last Admin: 11/09/23 09:00 Dose: Not Given Trazodone HCl (Trazodone Hcl 50 Mg Tablet) 50 mg PO BEDTIME MRX1 PRN PRN Reason: Insomnia Last Admin: 11/08/23 21:29 Dose: 50 mg Trazodone HCl (Trazodone Hcl 50 Mg Tablet) 50 mg PO BEDTIME [facility] Allergies Allergies Allergy/AdvReac Type Severity Reaction Status Date / Time No Known Allergies Allergy Verified 11/02/23 22:07 Assessment & Plan Assessment & Plan (1) Major neurocognitive disorder due to Alzheimer's disease, with behavioral disturbance: Status: Acute Code(s): G30.9 - Alzheimer's disease, unspecified; F02.818 - Dementia in other diseases classified elsewhere, unspecified severity, with other behavioral disturbance Assessment and Plan: 11/04: Continue tx. 11/05: Continue tx. PRN Olanzapine for agitation is ordered. Plan Pt is an 83-year-old female with a PMH significant for?HTN, hypothyroidism, GERD, and unspecified dementia who is admitted to [facility] for increasing agitation and disruptive behavior. Pt came from [facility] care unit after attempted exit seeking, hitting other residents with metal towel dispenser, hitting staff, and displaying paranoid behavior. Medical consult for admission H&P. 11/06 no aggression, taking medications, some bilat action tremors, suspect exacerbated with risperidone. may change to olanzapine 11/07- decrease risperidone to 0.5mg po BID due to tremors. scheduled dose of trazodone 50mg po qhs. 11/08 increase trazodone 50mg po qhs, additional prn. Reason for continued inpatient stay Substantial Risk for: inability to function Time Spent With Patient Time: Total time managing care of this patient today ____ minutes.
[2023-11-09 11:28] VITALS: BMI 25.5
[2023-11-09 19:52] VITALS: BP 156/70; PULSE 80; RESP 17; TEMP 36.8; O2SAT 97
[2023-11-09] MEDS: Donepezil HCl 5 MG TABLET PO (19:57)
[2023-11-09] MEDS: traZODone HCL 50 MG TABLET PO (19:58)
[2023-11-10] MEDS: Levothyroxine Sodium 112 MCG, Levothyroxine Sodium 25 MCG 137 MCG PO (05:39)
[2023-11-10 08:24] VITALS: BP 138/63; PULSE 82; RESP 15; TEMP 36.7; O2SAT 98
[2023-11-10] MEDS: risperiDONE 0.5 MG TABLET PO ×2 (08:26→21:14)
[2023-11-10] MEDS: amLODIPine Besylate 2.5 MG TABLET PO (08:26)
[2023-11-10] MEDS: Propranolol HCL 20 MG TABLET PO (08:26)
--- NOTE | 2023-11-10 10:50 | P.PNPSI_ITS ---
Subjective Subjective Date of Service: 11/10/23 Reason For Visit: Unspecified dementia, unspecified severity Subjective Notes: Conditional Voluntary Interim History: Pt slept about 2hrs last night. again no combative behaviors nor agitation. She continues to present as pleasant, going to groups. She asks about plan after here. Confused as to whether she lives here or not or how long she has been here. Review of Systems Review of Systems head tremor Yes all other systems are reviewed and are negative (denies) Mental Status Exam Mental Status Exam Narrative: Appearance: wearing casual clothing, good hygiene, in NAD Behavior: cooperative and friendly Psychomotor: no agitation or retardation noted Speech: clear, normal rate/rhythm/volume, spontaneous TP: linear TC: no overt psychosis or delusions, trying out this place, looks nice Mood: good Affect: congruent SI: none HI: none VH/AH: none Delusions: currently no overt delusions, confabulation noted, possible sundowning with more paranoid delusions Insight/judgment: impaired x 2. Memory/cog: alert, not oriented to place, month, year, date or situation. MOCA completed on 11/02 scored 12/03 with deficits in visuo spatial, executive function, recall, language fluency, orientation. ACL 4.4 Diagnostics Vital Signs (24Hr): Vital Signs - 24 hr 11/09/23 19:52 11/10/23 08:24 Temperature 98.2 F 98.1 F Pulse Rate 80 82 Respiratory Rate 17 15 Blood Pressure 156/70 H 138/63 Pulse Oximetry 97 98 Oxygen Delivery Method Room Air Room Air BMI result Body Mass Index 25.5 Labs 11/03/23 08:06 Medications Medications Current Medications Acetaminophen (Acetaminophen 325 Mg Tablet) 650 mg PO Q6H PRN PRN Reason: Headache/Pain Mild Scale (1-3) Al Hydroxide/Mg Hydroxide (Magnesium Hydrox/Alum Hydrox 30 Ml Oral.Susp) 30 ml PO Q6H PRN PRN Reason: Heartburn/Nausea Amlodipine Besylate (Amlodipine Besylate 2.5 Mg Tablet) 2.5 mg PO DAILY [facility]; Protocol Last Admin: 11/10/23 08:26 Dose: 2.5 mg Benztropine Mesylate (Benztropine Mesylate 0.5 Mg Tablet) 0.5 mg PO DAILY PRN PRN Reason: Extrapyramidal Effects Donepezil HCl (Donepezil Hcl 5 Mg Tablet) 5 mg PO BEDTIME [facility] Last Admin: 11/09/23 19:57 Dose: 5 mg Levothyroxine Sodium 112 mcg/ (Levothyroxine Sodium 25 mcg) 137 mcg PO DAILY@0600 [facility] Last Admin: 11/10/23 05:39 Dose: 137 mcg Magnesium Hydroxide (Milk Of Magnesia 30 Ml Oral.Susp) 30 ml PO DAILY PRN PRN Reason: Constipation Nicotine (Nicotine 21 Mg Patch.Td24) 21 mg TRANSDERMA DAILY PRN PRN Reason: smoking cessation Nicotine Polacrilex (Nicotine Polacrilex 2 Mg Gum) 4 mg BUCCAL Q2H PRN PRN Reason: Nicotine Cravings Olanzapine (Olanzapine 5 Mg Tablet) 5 mg PO Q4H PRN PRN Reason: agitation Propranolol HCl (Propranolol Hcl 20 Mg Tablet) 20 mg PO DAILY [facility]; Protocol Last Admin: 11/10/23 08:26 Dose: 20 mg Risperidone (Risperidone 0.5 Mg Tablet) 0.5 mg PO BID [facility] Last Admin: 11/10/23 08:26 Dose: 0.5 mg Trazodone HCl (Trazodone Hcl 50 Mg Tablet) 50 mg PO BEDTIME MRX1 PRN PRN Reason: Insomnia Last Admin: 11/08/23 21:29 Dose: 50 mg Trazodone HCl (Trazodone Hcl 50 Mg Tablet) 50 mg PO BEDTIME [facility] Last Admin: 11/09/23 19:58 Dose: 50 mg Allergies Allergies Allergy/AdvReac Type Severity Reaction Status Date / Time No Known Allergies Allergy Verified 11/02/23 22:07 Assessment & Plan Assessment & Plan (1) Major neurocognitive disorder due to Alzheimer's disease, with behavioral disturbance: Status: Acute Code(s): G30.9 - Alzheimer's disease, unspecified; F02.818 - Dementia in other diseases classified elsewhere, unspecified severity, with other behavioral disturbance Assessment and Plan: 11/04: Continue tx. 11/05: Continue tx. PRN Olanzapine for agitation is ordered. Plan Pt is an 83-year-old female with a PMH significant for?HTN, hypothyroidism, GERD, and unspecified dementia who is admitted to [facility] for increasing agitation and disruptive behavior. Pt came from [facility] unit after attempted exit seeking, hitting other residents with metal towel dispenser, hitting staff, and displaying paranoid behavior. Medical consult for admission H&P. 11/06 no aggression, taking medications, some bilat action tremors, suspect exacerbated with risperidone. may change to olanzapine 11/07- decrease risperidone to 0.5mg po BID due to tremors. scheduled dose of trazodone 50mg po qhs. 11/08 increase trazodone 50mg po qhs, additional prn. 11/09 increase trazodone again to 100mg po qhs. added melatonin 6mg po qhs. Reason for continued inpatient stay Substantial Risk for: inability to function Time Spent With Patient Time: Total time managing care of this patient today ____ minutes.
[2023-11-10 20:00] VITALS: BP 129/62; PULSE 89; RESP 16; TEMP 36.8; O2SAT 97
[2023-11-10] MEDS: Melatonin 3 MG TABLET 6 MG PO (21:13)
[2023-11-10] MEDS: traZODone HCL 100 MG TABLET PO (21:14)
[2023-11-10] MEDS: Donepezil HCl 5 MG TABLET PO (21:14)
[2023-11-11] MEDS: Levothyroxine Sodium 112 MCG, Levothyroxine Sodium 25 MCG 137 MCG PO (05:58)
[2023-11-11 08:00] VITALS: BP 136/61; PULSE 80; RESP 16; TEMP 36; O2SAT 98
[2023-11-11 08:12] VITALS: BP 136/61; PULSE 80
[2023-11-11] MEDS: Propranolol HCL 20 MG TABLET PO (08:12)
[2023-11-11 08:13] VITALS: BP 136/61
[2023-11-11] MEDS: risperiDONE 0.5 MG TABLET PO ×2 (08:13→20:56)
[2023-11-11] MEDS: amLODIPine Besylate 2.5 MG TABLET PO (08:13)
--- NOTE | 2023-11-11 09:24 | P.PNPSI_ITS ---
Subjective Subjective Date of Service: 11/11/23 Reason For Visit: Unspecified dementia, unspecified severity Subjective Notes: Conditional Voluntary Interim History: The nursing staff reported the patient had been talking with her peers social, confused at times easily redirectable. On interview the patient denies new symptoms unable to verbalize why she is here Mental Status Exam Mental Status Exam Patient Appearance: Appropriate Patient Orientation: Person and Situation Level of Consciousness: Awake and Appropriate Patient Behavior: Guarded and Passive Mood Description: Withdrawn Affect Description: Constricted Patient Cognition Impaired: Yes Ability to Follow Directions: Good Speech Pattern: Clear Hallucinations: None Delusions: Paranoid Ideation and Ideas of Reference Thought Process: Distracted and Slowed Thinking Thought Content: positive for [place] and positive for Poverty of Content Judgement: Fair Diagnostics Vital Signs (24Hr): Vital Signs - 24 hr 11/10/23 20:00 11/11/23 08:00 11/11/23 08:12 Temperature 98.3 F 96.8 F Pulse Rate 89 80 80 Respiratory Rate 16 16 Blood Pressure 129/62 136/61 136/61 Pulse Oximetry 97 98 Oxygen Delivery Method Room Air Room Air 11/11/23 08:13 Temperature Pulse Rate Respiratory Rate Blood Pressure 136/61 Pulse Oximetry Oxygen Delivery Method BMI result Body Mass Index 25.5 Labs 11/03/23 08:06 Medications Medications Current Medications Acetaminophen (Acetaminophen 325 Mg Tablet) 650 mg PO Q6H PRN PRN Reason: Headache/Pain Mild Scale (1-3) Al Hydroxide/Mg Hydroxide (Magnesium Hydrox/Alum Hydrox 30 Ml Oral.Susp) 30 ml PO Q6H PRN PRN Reason: Heartburn/Nausea Amlodipine Besylate (Amlodipine Besylate 2.5 Mg Tablet) 2.5 mg PO DAILY [facility]; Protocol Last Admin: 11/11/23 08:13 Dose: 2.5 mg Benztropine Mesylate (Benztropine Mesylate 0.5 Mg Tablet) 0.5 mg PO DAILY PRN PRN Reason: Extrapyramidal Effects Donepezil HCl (Donepezil Hcl 5 Mg Tablet) 5 mg PO BEDTIME [facility] Last Admin: 11/10/23 21:14 Dose: 5 mg Levothyroxine Sodium 112 mcg/ (Levothyroxine Sodium 25 mcg) 137 mcg PO DAILY@0600 [facility] Last Admin: 11/11/23 05:58 Dose: 137 mcg Magnesium Hydroxide (Milk Of Magnesia 30 Ml Oral.Susp) 30 ml PO DAILY PRN PRN Reason: Constipation Melatonin (Melatonin 3 Mg Tablet) 6 mg PO BEDTIME [facility] Last Admin: 11/10/23 21:13 Dose: 6 mg Nicotine (Nicotine 21 Mg Patch.Td24) 21 mg TRANSDERMA DAILY PRN PRN Reason: smoking cessation Nicotine Polacrilex (Nicotine Polacrilex 2 Mg Gum) 4 mg BUCCAL Q2H PRN PRN Reason: Nicotine Cravings Olanzapine (Olanzapine 5 Mg Tablet) 5 mg PO Q4H PRN PRN Reason: agitation Propranolol HCl (Propranolol Hcl 20 Mg Tablet) 20 mg PO DAILY [facility]; Protocol Last Admin: 11/11/23 08:12 Dose: 20 mg Risperidone (Risperidone 0.5 Mg Tablet) 0.5 mg PO BID [facility] Last Admin: 11/11/23 08:13 Dose: 0.5 mg Trazodone HCl (Trazodone Hcl 50 Mg Tablet) 50 mg PO BEDTIME MRX1 PRN PRN Reason: Insomnia Last Admin: 11/08/23 21:29 Dose: 50 mg Trazodone HCl (Trazodone Hcl 100 Mg Tablet) 100 mg PO BEDTIME [facility] Last Admin: 11/10/23 21:14 Dose: 100 mg Allergies Allergies Allergy/AdvReac Type Severity Reaction Status Date / Time No Known Allergies Allergy Verified 11/02/23 22:07 Assessment & Plan Assessment & Plan (1) Major neurocognitive disorder due to Alzheimer's disease, with behavioral disturbance: Status: Acute Code(s): G30.9 - Alzheimer's disease, unspecified; F02.818 - Dementia in other diseases classified elsewhere, unspecified severity, with other behavioral disturbance Assessment and Plan: 11/04: Continue tx. 11/05: Continue tx. PRN Olanzapine for agitation is ordered. Plan Pt is an 83-year-old female with a PMH significant for?HTN, hypothyroidism, GERD, and unspecified dementia who is admitted to [facility] for increasing agitation and disruptive behavior. Pt came from [facility] memory care unit after attempted exit seeking, hitting other residents with metal towel dispenser, hitting staff, and displaying paranoid behavior. Medical consult for admission H&P. 11/06 no aggression, taking medications, some bilat action tremors, suspect exacerbated with risperidone. may change to olanzapine 11/07- decrease risperidone to 0.5mg po BID due to tremors. scheduled dose of trazodone 50mg po qhs. 11/08 increase trazodone 50mg po qhs, additional prn. 11/09 increase trazodone again to 100mg po qhs. added melatonin 6mg po qhs. 11/10 keep same treatment Reason for continued inpatient stay Substantial Risk for: inability to function, rapid decompensation and med/psych decompensation Time Spent With Patient Time: Total time managing care of this patient today _20___ minutes.
[2023-11-11 20:00] VITALS: BP 141/65; PULSE 85; RESP 16; TEMP 36.9; O2SAT 95
[2023-11-11] MEDS: Melatonin 3 MG TABLET 6 MG PO (20:55)
[2023-11-11] MEDS: traZODone HCL 100 MG TABLET PO (20:56)
[2023-11-11] MEDS: Donepezil HCl 5 MG TABLET PO (20:56)
[2023-11-12] MEDS: Levothyroxine Sodium 112 MCG, Levothyroxine Sodium 25 MCG 137 MCG PO (06:20)
[2023-11-12 08:06] VITALS: BP 142/65; PULSE 92; RESP 18; TEMP 36.1; O2SAT 96
[2023-11-12] MEDS: risperiDONE 0.5 MG TABLET PO ×2 (08:23→20:49)
[2023-11-12] MEDS: amLODIPine Besylate 2.5 MG TABLET PO (08:23)
[2023-11-12] MEDS: Propranolol HCL 20 MG TABLET PO (08:23)
--- NOTE | 2023-11-12 09:48 | P.PNPSI_ITS ---
Subjective Subjective Date of Service: 11/12/23 Reason For Visit: Unspecified dementia, unspecified severity Subjective Notes: Conditional Voluntary Interim History: The nursing staff reported the patient had been compliant with treatment slept all well last night she was irritable with a peer. On interview the patient denies new symptoms compliant with treatment Mental Status Exam Mental Status Exam Patient Appearance: Appropriate Patient Orientation: Person and Situation Level of Consciousness: Awake Patient Behavior: Guarded and Passive Mood Description: Withdrawn Affect Description: Constricted Patient Cognition Impaired: Yes Ability to Follow Directions: Fair Speech Pattern: Clear Hallucinations: None Delusions: Ideas of Reference Thought Process: Distracted and Slowed Thinking Thought Content: positive for [place] and positive for Poverty of Content Judgement: Poor Diagnostics Vital Signs (24Hr): Vital Signs - 24 hr 11/11/23 20:00 11/12/23 08:06 Temperature 98.5 F 96.9 F Pulse Rate 85 92 Respiratory Rate 16 18 Blood Pressure 141/65 H 142/65 H Pulse Oximetry 95 96 Oxygen Delivery Method Room Air Room Air BMI result Body Mass Index 25.5 Labs 11/03/23 08:06 Medications Medications Current Medications Acetaminophen (Acetaminophen 325 Mg Tablet) 650 mg PO Q6H PRN PRN Reason: Headache/Pain Mild Scale (1-3) Al Hydroxide/Mg Hydroxide (Magnesium Hydrox/Alum Hydrox 30 Ml Oral.Susp) 30 ml PO Q6H PRN PRN Reason: Heartburn/Nausea Amlodipine Besylate (Amlodipine Besylate 2.5 Mg Tablet) 2.5 mg PO DAILY [facility]; Protocol Last Admin: 11/12/23 08:23 Dose: 2.5 mg Benztropine Mesylate (Benztropine Mesylate 0.5 Mg Tablet) 0.5 mg PO DAILY PRN PRN Reason: Extrapyramidal Effects Donepezil HCl (Donepezil Hcl 5 Mg Tablet) 5 mg PO BEDTIME [facility] Last Admin: 11/11/23 20:56 Dose: 5 mg Levothyroxine Sodium 112 mcg/ (Levothyroxine Sodium 25 mcg) 137 mcg PO DAILY@0600 [facility] Last Admin: 11/12/23 06:20 Dose: 137 mcg Magnesium Hydroxide (Milk Of Magnesia 30 Ml Oral.Susp) 30 ml PO DAILY PRN PRN Reason: Constipation Melatonin (Melatonin 3 Mg Tablet) 6 mg PO BEDTIME [facility] Last Admin: 11/11/23 20:55 Dose: 6 mg Nicotine (Nicotine 21 Mg Patch.Td24) 21 mg TRANSDERMA DAILY PRN PRN Reason: smoking cessation Nicotine Polacrilex (Nicotine Polacrilex 2 Mg Gum) 4 mg BUCCAL Q2H PRN PRN Reason: Nicotine Cravings Olanzapine (Olanzapine 5 Mg Tablet) 5 mg PO Q4H PRN PRN Reason: agitation Propranolol HCl (Propranolol Hcl 20 Mg Tablet) 20 mg PO DAILY [facility]; Protocol Last Admin: 11/12/23 08:23 Dose: 20 mg Risperidone (Risperidone 0.5 Mg Tablet) 0.5 mg PO BID [facility] Last Admin: 11/12/23 08:23 Dose: 0.5 mg Trazodone HCl (Trazodone Hcl 50 Mg Tablet) 50 mg PO BEDTIME MRX1 PRN PRN Reason: Insomnia Last Admin: 11/08/23 21:29 Dose: 50 mg Trazodone HCl (Trazodone Hcl 100 Mg Tablet) 100 mg PO BEDTIME [facility] Last Admin: 11/11/23 20:56 Dose: 100 mg Allergies Allergies Allergy/AdvReac Type Severity Reaction Status Date / Time No Known Allergies Allergy Verified 11/02/23 22:07 Assessment & Plan Assessment & Plan (1) Major neurocognitive disorder due to Alzheimer's disease, with behavioral disturbance: Status: Acute Code(s): G30.9 - Alzheimer's disease, unspecified; F02.818 - Dementia in other diseases classified elsewhere, unspecified severity, with other behavioral disturbance Assessment and Plan: 11/04: Continue tx. 11/05: Continue tx. PRN Olanzapine for agitation is ordered. Plan Pt is an 83-year-old female with a PMH significant for?HTN, hypothyroidism, GERD, and unspecified dementia who is admitted to [facility] for increasing agitation and disruptive behavior. Pt came from [facility] memory care unit after attempted exit seeking, hitting other residents with metal towel dispenser, hitting staff, and displaying paranoid behavior. Medical consult for admission H&P. 11/06 no aggression, taking medications, some bilat action tremors, suspect exacerbated with risperidone. may change to olanzapine 11/07- decrease risperidone to 0.5mg po BID due to tremors. scheduled dose of trazodone 50mg po qhs. 11/08 increase trazodone 50mg po qhs, additional prn. 11/09 increase trazodone again to 100mg po qhs. added melatonin 6mg po qhs. 11/10 keep same treatment 11/11 keep same treatment Reason for continued inpatient stay Substantial Risk for: inability to function, rapid decompensation and med/psych decompensation Time Spent With Patient Time: Total time managing care of this patient today ___20_ minutes.
[2023-11-12 20:00] VITALS: BP 132/61; PULSE 76; RESP 16; TEMP 36.4; O2SAT 98
[2023-11-12] MEDS: Melatonin 3 MG TABLET 6 MG PO (20:48)
[2023-11-12] MEDS: traZODone HCL 100 MG TABLET PO (20:49)
[2023-11-12] MEDS: Donepezil HCl 5 MG TABLET PO (20:50)
[2023-11-13] MEDS: traZODone HCL 50 MG TABLET PO (00:34)
[2023-11-13] MEDS: Levothyroxine Sodium 112 MCG, Levothyroxine Sodium 25 MCG 137 MCG PO (05:41)
[2023-11-13 08:06] VITALS: BP 150/66; PULSE 77; RESP 16; TEMP 36.1; O2SAT 98
[2023-11-13 08:08] VITALS: PULSE 77
[2023-11-13] MEDS: amLODIPine Besylate 2.5 MG TABLET PO (08:08)
[2023-11-13] MEDS: risperiDONE 0.5 MG TABLET PO ×2 (08:08→20:56)
[2023-11-13] MEDS: Propranolol HCL 20 MG TABLET PO (08:08)
--- NOTE | 2023-11-13 08:50 | P.PNPSI_ITS ---
Subjective Subjective Date of Service: 11/13/23 Reason For Visit: Unspecified dementia, unspecified severity Subjective Notes: Conditional Voluntary Interim History: Pt slept all night. She is taking medications as prescribed. She denies any physical pain. She reports doing well. She has been visible on the unit, attending groups. No Behavioral concerns. Review of Systems Review of Systems head tremor Yes all other systems are reviewed and are negative (denies) Mental Status Exam Mental Status Exam Narrative: Appearance: wearing casual clothing, good hygiene, in NAD Behavior: cooperative and friendly Psychomotor: no agitation or retardation noted Speech: clear, normal rate/rhythm/volume, spontaneous TP: linear TC: no overt psychosis or delusions, trying out this place, looks nice Mood: good Affect: congruent SI: none HI: none VH/AH: none Delusions: currently no overt delusions, confabulation noted, possible sundowning with more paranoid delusions Insight/judgment: impaired x 2. Memory/cog: alert, not oriented to place, month, year, date or situation. MOCA completed on 11/02 scored 12/03 with deficits in visuo spatial, executive function, recall, language fluency, orientation. ACL 4.4 Diagnostics Vital Signs (24Hr): Vital Signs - 24 hr 11/12/23 20:00 11/13/23 08:06 11/13/23 08:08 Temperature 97.6 F 97.0 F Pulse Rate 76 77 77 Respiratory Rate 16 16 Blood Pressure 132/61 150/66 H Pulse Oximetry 98 98 Oxygen Delivery Method Room Air Room Air BMI result Body Mass Index 25.5 Labs 11/03/23 08:06 Medications Medications Current Medications Acetaminophen (Acetaminophen 325 Mg Tablet) 650 mg PO Q6H PRN PRN Reason: Headache/Pain Mild Scale (1-3) Al Hydroxide/Mg Hydroxide (Magnesium Hydrox/Alum Hydrox 30 Ml Oral.Susp) 30 ml PO Q6H PRN PRN Reason: Heartburn/Nausea Amlodipine Besylate (Amlodipine Besylate 2.5 Mg Tablet) 2.5 mg PO DAILY [facility]; Protocol Last Admin: 11/13/23 08:08 Dose: 2.5 mg Benztropine Mesylate (Benztropine Mesylate 0.5 Mg Tablet) 0.5 mg PO DAILY PRN PRN Reason: Extrapyramidal Effects Donepezil HCl (Donepezil Hcl 5 Mg Tablet) 5 mg PO BEDTIME [facility] Last Admin: 11/12/23 20:50 Dose: 5 mg Levothyroxine Sodium 112 mcg/ (Levothyroxine Sodium 25 mcg) 137 mcg PO DAILY@0600 [facility] Last Admin: 11/13/23 05:41 Dose: 137 mcg Magnesium Hydroxide (Milk Of Magnesia 30 Ml Oral.Susp) 30 ml PO DAILY PRN PRN Reason: Constipation Melatonin (Melatonin 3 Mg Tablet) 6 mg PO BEDTIME [facility] Last Admin: 11/12/23 20:48 Dose: 6 mg Nicotine (Nicotine 21 Mg Patch.Td24) 21 mg TRANSDERMA DAILY PRN PRN Reason: smoking cessation Nicotine Polacrilex (Nicotine Polacrilex 2 Mg Gum) 4 mg BUCCAL Q2H PRN PRN Reason: Nicotine Cravings Olanzapine (Olanzapine 5 Mg Tablet) 5 mg PO Q4H PRN PRN Reason: agitation Propranolol HCl (Propranolol Hcl 20 Mg Tablet) 20 mg PO DAILY [facility]; Protocol Last Admin: 11/13/23 08:08 Dose: 20 mg Risperidone (Risperidone 0.5 Mg Tablet) 0.5 mg PO BID [facility] Last Admin: 11/13/23 08:08 Dose: 0.5 mg Trazodone HCl (Trazodone Hcl 50 Mg Tablet) 50 mg PO BEDTIME MRX1 PRN PRN Reason: Insomnia Last Admin: 11/13/23 00:34 Dose: 50 mg Trazodone HCl (Trazodone Hcl 100 Mg Tablet) 100 mg PO BEDTIME [facility] Last Admin: 11/12/23 20:49 Dose: 100 mg Allergies Allergies Allergy/AdvReac Type Severity Reaction Status Date / Time No Known Allergies Allergy Verified 11/02/23 22:07 Assessment & Plan Assessment & Plan (1) Major neurocognitive disorder due to Alzheimer's disease, with behavioral disturbance: Status: Acute Code(s): G30.9 - Alzheimer's disease, unspecified; F02.818 - Dementia in other diseases classified elsewhere, unspecified severity, with other behavioral disturbance Assessment and Plan: 11/04: Continue tx. 11/05: Continue tx. PRN Olanzapine for agitation is ordered. Plan Pt is an 83-year-old female with a PMH significant for?HTN, hypothyroidism, GERD, and unspecified dementia who is admitted to [facility] for increasing agitation and disruptive behavior. Pt came from [facility] care unit after attempted exit seeking, hitting other residents with metal towel dispenser, hitting staff, and displaying paranoid behavior. Medical consult for admission H&P. 11/06 no aggression, taking medications, some bilat action tremors, suspect exacerbated with risperidone. may change to olanzapine 11/07- decrease risperidone to 0.5mg po BID due to tremors. scheduled dose of trazodone 50mg po qhs. 11/08 increase trazodone 50mg po qhs, additional prn. 11/09 increase trazodone again to 100mg po qhs. added melatonin 6mg po qhs. 11/10 keep same treatment 11/11 keep same treatment 11/12 continue tx. Reason for continued inpatient stay Substantial Risk for: inability to function Time Spent With Patient Time: Total time managing care of this patient today ____ minutes.
[2023-11-13 20:00] VITALS: BP 133/60; PULSE 75; RESP 16; TEMP 36.1; O2SAT 98
[2023-11-13] MEDS: Melatonin 3 MG TABLET 6 MG PO (20:56)
[2023-11-13] MEDS: Donepezil HCl 5 MG TABLET PO (20:56)
[2023-11-13] MEDS: traZODone HCL 100 MG TABLET PO (20:57)
[2023-11-14] MEDS: Levothyroxine Sodium 112 MCG, Levothyroxine Sodium 25 MCG 137 MCG PO (06:38)
[2023-11-14 08:00] VITALS: BP 132/60; PULSE 84; RESP 18; TEMP 36.2; O2SAT 96
[2023-11-14 08:19] VITALS: BP 132/60; PULSE 84
[2023-11-14] MEDS: Propranolol HCL 20 MG TABLET PO (08:19)
[2023-11-14 08:20] VITALS: BP 132/60
[2023-11-14] MEDS: risperiDONE 0.5 MG TABLET PO ×2 (08:20→20:02)
[2023-11-14] MEDS: amLODIPine Besylate 2.5 MG TABLET PO (08:20)
--- NOTE | 2023-11-14 08:34 | P.PNPSI_ITS ---
Subjective Subjective Date of Service: 11/14/23 Reason For Visit: Unspecified dementia, unspecified severity Subjective Notes: Conditional Voluntary Interim History: Pt slept about 6 hrs, some difficulty staying asleep. She is pleasant and cooperative. She is attending groups, pleasant on approach. She is eating well. No behavioral concerns. Diagnostics Vital Signs (24Hr): Vital Signs - 24 hr 11/13/23 20:00 11/14/23 08:19 11/14/23 08:20 Temperature 96.9 F Pulse Rate 75 84 Respiratory Rate 16 Blood Pressure 133/60 132/60 132/60 Pulse Oximetry 98 Oxygen Delivery Method Room Air BMI result Body Mass Index 25.5 Labs 11/03/23 08:06 Medications Medications Current Medications Acetaminophen (Acetaminophen 325 Mg Tablet) 650 mg PO Q6H PRN PRN Reason: Headache/Pain Mild Scale (1-3) Al Hydroxide/Mg Hydroxide (Magnesium Hydrox/Alum Hydrox 30 Ml Oral.Susp) 30 ml PO Q6H PRN PRN Reason: Heartburn/Nausea Amlodipine Besylate (Amlodipine Besylate 2.5 Mg Tablet) 2.5 mg PO DAILY [facility]; Protocol Last Admin: 11/14/23 08:20 Dose: 2.5 mg Benztropine Mesylate (Benztropine Mesylate 0.5 Mg Tablet) 0.5 mg PO DAILY PRN PRN Reason: Extrapyramidal Effects Donepezil HCl (Donepezil Hcl 5 Mg Tablet) 5 mg PO BEDTIME [facility] Last Admin: 11/13/23 20:56 Dose: 5 mg Levothyroxine Sodium 112 mcg/ (Levothyroxine Sodium 25 mcg) 137 mcg PO DAILY@0600 [facility] Last Admin: 11/14/23 06:38 Dose: 137 mcg Magnesium Hydroxide (Milk Of Magnesia 30 Ml Oral.Susp) 30 ml PO DAILY PRN PRN Reason: Constipation Melatonin (Melatonin 3 Mg Tablet) 6 mg PO BEDTIME [facility] Last Admin: 11/13/23 20:56 Dose: 6 mg Nicotine (Nicotine 21 Mg Patch.Td24) 21 mg TRANSDERMA DAILY PRN PRN Reason: smoking cessation Nicotine Polacrilex (Nicotine Polacrilex 2 Mg Gum) 4 mg BUCCAL Q2H PRN PRN Reason: Nicotine Cravings Olanzapine (Olanzapine 5 Mg Tablet) 5 mg PO Q4H PRN PRN Reason: agitation Propranolol HCl (Propranolol Hcl 20 Mg Tablet) 20 mg PO DAILY [facility]; Protocol Last Admin: 11/14/23 08:19 Dose: 20 mg Risperidone (Risperidone 0.5 Mg Tablet) 0.5 mg PO BID [facility] Last Admin: 11/14/23 08:20 Dose: 0.5 mg Trazodone HCl (Trazodone Hcl 50 Mg Tablet) 50 mg PO BEDTIME MRX1 PRN PRN Reason: Insomnia Last Admin: 11/13/23 00:34 Dose: 50 mg Trazodone HCl (Trazodone Hcl 100 Mg Tablet) 100 mg PO BEDTIME [facility] Last Admin: 11/13/23 20:57 Dose: 100 mg Allergies Allergies Allergy/AdvReac Type Severity Reaction Status Date / Time No Known Allergies Allergy Verified 11/02/23 22:07 Assessment & Plan Assessment & Plan (1) Major neurocognitive disorder due to Alzheimer's disease, with behavioral disturbance: Status: Acute Code(s): G30.9 - Alzheimer's disease, unspecified; F02.818 - Dementia in other diseases classified elsewhere, unspecified severity, with other behavioral disturbance Assessment and Plan: 11/04: Continue tx. 11/05: Continue tx. PRN Olanzapine for agitation is ordered. Plan Pt is an 83-year-old female with a PMH significant for?HTN, hypothyroidism, GERD, and unspecified dementia who is admitted to [facility] for increasing agitation and disruptive behavior. Pt came from [facility] memory care unit after attempted exit seeking, hitting other residents with metal towel dispenser, hitting staff, and displaying paranoid behavior. Medical consult for admission H&P. 11/06 no aggression, taking medications, some bilat action tremors, suspect exacerbated with risperidone. may change to olanzapine 11/07- decrease risperidone to 0.5mg po BID due to tremors. scheduled dose of trazodone 50mg po qhs. 11/08 increase trazodone 50mg po qhs, additional prn. 11/09 increase trazodone again to 100mg po qhs. added melatonin 6mg po qhs. 11/10 keep same treatment 11/11 keep same treatment 11/12 continue tx. 11/13 continue tx. Reason for continued inpatient stay Substantial Risk for: inability to function Time Spent With Patient Time: Total time managing care of this patient today ____ minutes.
[2023-11-14] MEDS: Melatonin 3 MG TABLET 6 MG PO (20:02)
[2023-11-14] MEDS: traZODone HCL 100 MG TABLET PO (20:02)
[2023-11-14] MEDS: Donepezil HCl 5 MG TABLET PO (20:02)
[2023-11-14 20:04] VITALS: BP 113/53; PULSE 70; RESP 17; TEMP 36.3; O2SAT 96
[2023-11-15] MEDS: Levothyroxine Sodium 112 MCG, Levothyroxine Sodium 25 MCG 137 MCG PO (05:42)
--- NOTE | 2023-11-15 09:25 | P.PNPSI_ITS ---
Subjective Subjective Date of Service: 11/15/23 Reason For Visit: Unspecified dementia, unspecified severity Subjective Notes: Conditional Voluntary Interim History: Pt slept through the night. She is pleasant and cooperative. She is attending groups, pleasant on approach. She is eating well. No behavioral concerns. Review of Systems Review of Systems head tremor Yes all other systems are reviewed and are negative (denies) Mental Status Exam Mental Status Exam Narrative: Appearance: wearing casual clothing, good hygiene, in NAD Behavior: cooperative and friendly Psychomotor: no agitation or retardation noted Speech: clear, normal rate/rhythm/volume, spontaneous TP: linear TC: no overt psychosis or delusions, trying out this place, looks nice Mood: good Affect: congruent SI: none HI: none VH/AH: none Delusions: currently no overt delusions, confabulation noted, possible sundowning with more paranoid delusions Insight/judgment: impaired x 2. Memory/cog: alert, not oriented to place, month, year, date or situation. MOCA completed on 11/02 scored 12/03 with deficits in visuo spatial, executive function, recall, language fluency, orientation. ACL 4.4 Diagnostics Vital Signs (24Hr): Vital Signs - 24 hr 11/14/23 20:04 Temperature 97.4 F Pulse Rate 70 Respiratory Rate 17 Blood Pressure 113/53 L Pulse Oximetry 96 Oxygen Delivery Method Room Air BMI result Body Mass Index 25.5 Labs 11/03/23 08:06 Medications Medications Current Medications Acetaminophen (Acetaminophen 325 Mg Tablet) 650 mg PO Q6H PRN PRN Reason: Headache/Pain Mild Scale (1-3) Al Hydroxide/Mg Hydroxide (Magnesium Hydrox/Alum Hydrox 30 Ml Oral.Susp) 30 ml PO Q6H PRN PRN Reason: Heartburn/Nausea Amlodipine Besylate (Amlodipine Besylate 2.5 Mg Tablet) 2.5 mg PO DAILY [facility]; Protocol Last Admin: 11/14/23 08:20 Dose: 2.5 mg Benztropine Mesylate (Benztropine Mesylate 0.5 Mg Tablet) 0.5 mg PO DAILY PRN PRN Reason: Extrapyramidal Effects Donepezil HCl (Donepezil Hcl 5 Mg Tablet) 5 mg PO BEDTIME [facility] Last Admin: 11/14/23 20:02 Dose: 5 mg Levothyroxine Sodium 112 mcg/ (Levothyroxine Sodium 25 mcg) 137 mcg PO DAILY@0600 [facility] Last Admin: 11/15/23 05:42 Dose: 137 mcg Magnesium Hydroxide (Milk Of Magnesia 30 Ml Oral.Susp) 30 ml PO DAILY PRN PRN Reason: Constipation Melatonin (Melatonin 3 Mg Tablet) 6 mg PO BEDTIME [facility] Last Admin: 11/14/23 20:02 Dose: 6 mg Nicotine (Nicotine 21 Mg Patch.Td24) 21 mg TRANSDERMA DAILY PRN PRN Reason: smoking cessation Nicotine Polacrilex (Nicotine Polacrilex 2 Mg Gum) 4 mg BUCCAL Q2H PRN PRN Reason: Nicotine Cravings Olanzapine (Olanzapine 5 Mg Tablet) 5 mg PO Q4H PRN PRN Reason: agitation Propranolol HCl (Propranolol Hcl 20 Mg Tablet) 20 mg PO DAILY [facility]; Protocol Last Admin: 11/14/23 08:19 Dose: 20 mg Risperidone (Risperidone 0.5 Mg Tablet) 0.5 mg PO BID [facility] Last Admin: 11/14/23 20:02 Dose: 0.5 mg Trazodone HCl (Trazodone Hcl 50 Mg Tablet) 50 mg PO BEDTIME MRX1 PRN PRN Reason: Insomnia Last Admin: 11/13/23 00:34 Dose: 50 mg Trazodone HCl (Trazodone Hcl 100 Mg Tablet) 100 mg PO BEDTIME [facility] Last Admin: 11/14/23 20:02 Dose: 100 mg Allergies Allergies Allergy/AdvReac Type Severity Reaction Status Date / Time No Known Allergies Allergy Verified 11/02/23 22:07 Assessment & Plan Assessment & Plan (1) Major neurocognitive disorder due to Alzheimer's disease, with behavioral disturbance: Status: Acute Code(s): G30.9 - Alzheimer's disease, unspecified; F02.818 - Dementia in other diseases classified elsewhere, unspecified severity, with other behavioral disturbance Assessment and Plan: 11/04: Continue tx. 11/05: Continue tx. PRN Olanzapine for agitation is ordered. Plan Pt is an 83-year-old female with a PMH significant for?HTN, hypothyroidism, GERD, and unspecified dementia who is admitted to [facility] for increasing agitation and disruptive behavior. Pt came from [facility] unit after attempted exit seeking, hitting other residents with metal towel dispenser, hitting staff, and displaying paranoid behavior. Medical consult for admission H&P. 11/06 no aggression, taking medications, some bilat action tremors, suspect exacerbated with risperidone. may change to olanzapine 11/07- decrease risperidone to 0.5mg po BID due to tremors. scheduled dose of trazodone 50mg po qhs. 11/08 increase trazodone 50mg po qhs, additional prn. 11/09 increase trazodone again to 100mg po qhs. added melatonin 6mg po qhs. 11/10 keep same treatment 11/11 keep same treatment 11/12 continue tx. 11/13 continue tx. 11/14 continue tx. Reason for continued inpatient stay Substantial Risk for: inability to function Time Spent With Patient Time: Total time managing care of this patient today ____ minutes.
[2023-11-15] MEDS: Propranolol HCL 20 MG TABLET PO (10:45)
[2023-11-15] MEDS: amLODIPine Besylate 2.5 MG TABLET PO (10:45)
[2023-11-15] MEDS: risperiDONE 0.5 MG TABLET PO ×2 (10:46→21:05)
[2023-11-15 10:47] VITALS: BP 168/72; PULSE 79; RESP 18; TEMP 36.6; O2SAT 98
[2023-11-15 20:00] VITALS: BP 151/65; PULSE 89; RESP 18; TEMP 36.6; O2SAT 96
[2023-11-15] MEDS: Melatonin 3 MG TABLET 6 MG PO (21:05)
[2023-11-15] MEDS: Donepezil HCl 5 MG TABLET PO (21:06)
[2023-11-15] MEDS: traZODone HCL 100 MG TABLET PO (21:06)
[2023-11-16] MEDS: Levothyroxine Sodium 112 MCG, Levothyroxine Sodium 25 MCG 137 MCG PO (06:16)
--- NOTE | 2023-11-16 08:56 | HO.PSYCHPN ---
Subjective Subjective Date of Service: 11/16/23 Reason For Visit: Unspecified dementia, unspecified severity Subjective Notes: Conditional Voluntary Interim History: Pt slept about 4 hrs. She is pleasant and cooperative. She is attending groups, pleasant on approach. She is eating well. No behavioral concerns. Review of Systems Review of Systems head tremor Yes all other systems are reviewed and are negative (denies) Mental Status Exam Mental Status Exam Narrative: Appearance: wearing casual clothing, good hygiene, in NAD Behavior: cooperative and friendly Psychomotor: no agitation or retardation noted Speech: clear, normal rate/rhythm/volume, spontaneous TP: linear TC: no overt psychosis or delusions, trying out this place, looks nice Mood: good Affect: congruent SI: none HI: none VH/AH: none Delusions: currently no overt delusions, confabulation noted, possible sundowning with more paranoid delusions Insight/judgment: impaired x 2. Memory/cog: alert, not oriented to place, month, year, date or situation. MOCA completed on 11/02 scored 12/03 with deficits in visuo spatial, executive function, recall, language fluency, orientation. ACL 4.4 Diagnostics Vital Signs (24Hr): Vital Signs - 24 hr 11/15/23 10:47 11/15/23 20:00 Temperature 98 F 97.8 F Pulse Rate 79 89 Respiratory Rate 18 18 Blood Pressure 168/72 H 151/65 H Pulse Oximetry 98 96 Oxygen Delivery Method Room Air Room Air BMI result Body Mass Index 25.5 Labs 11/03/23 08:06 Medications Medications Current Medications Acetaminophen (Acetaminophen 325 Mg Tablet) 650 mg PO Q6H PRN PRN Reason: Headache/Pain Mild Scale (1-3) Al Hydroxide/Mg Hydroxide (Magnesium Hydrox/Alum Hydrox 30 Ml Oral.Susp) 30 ml PO Q6H PRN PRN Reason: Heartburn/Nausea Amlodipine Besylate (Amlodipine Besylate 2.5 Mg Tablet) 2.5 mg PO DAILY BHAVNA; Protocol Last Admin: 11/15/23 10:45 Dose: 2.5 mg Benztropine Mesylate (Benztropine Mesylate 0.5 Mg Tablet) 0.5 mg PO DAILY PRN PRN Reason: Extrapyramidal Effects Donepezil HCl (Donepezil Hcl 5 Mg Tablet) 5 mg PO BEDTIME BHAVNA Last Admin: 11/15/23 21:06 Dose: 5 mg Levothyroxine Sodium 112 mcg/ (Levothyroxine Sodium 25 mcg) 137 mcg PO DAILY@0600 [facility] Last Admin: 11/16/23 06:16 Dose: 137 mcg Magnesium Hydroxide (Milk Of Magnesia 30 Ml Oral.Susp) 30 ml PO DAILY PRN PRN Reason: Constipation Melatonin (Melatonin 3 Mg Tablet) 6 mg PO BEDTIME [facility] Last Admin: 11/15/23 21:05 Dose: 6 mg Nicotine (Nicotine 21 Mg Patch.Td24) 21 mg TRANSDERMA DAILY PRN PRN Reason: smoking cessation Nicotine Polacrilex (Nicotine Polacrilex 2 Mg Gum) 4 mg BUCCAL Q2H PRN PRN Reason: Nicotine Cravings Olanzapine (Olanzapine 5 Mg Tablet) 5 mg PO Q4H PRN PRN Reason: agitation Propranolol HCl (Propranolol Hcl 20 Mg Tablet) 20 mg PO DAILY [facility]; Protocol Last Admin: 11/15/23 10:45 Dose: 20 mg Risperidone (Risperidone 0.5 Mg Tablet) 0.5 mg PO BID [facility] Last Admin: 11/15/23 21:05 Dose: 0.5 mg Trazodone HCl (Trazodone Hcl 50 Mg Tablet) 50 mg PO BEDTIME MRX1 PRN PRN Reason: Insomnia Last Admin: 11/13/23 00:34 Dose: 50 mg Trazodone HCl (Trazodone Hcl 100 Mg Tablet) 100 mg PO BEDTIME [facility] Last Admin: 11/15/23 21:06 Dose: 100 mg Allergies Allergies Allergy/AdvReac Type Severity Reaction Status Date / Time No Known Allergies Allergy Verified 11/02/23 22:07 Assessment & Plan Assessment & Plan (1) Major neurocognitive disorder due to Alzheimer's disease, with behavioral disturbance: Status: Acute Code(s): G30.9 - Alzheimer's disease, unspecified; F02.818 - Dementia in other diseases classified elsewhere, unspecified severity, with other behavioral disturbance Assessment and Plan: 11/04: Continue tx. 11/05: Continue tx. PRN Olanzapine for agitation is ordered. Plan Pt is an 83-year-old female with a PMH significant for?HTN, hypothyroidism, GERD, and unspecified dementia who is admitted to [facility] for increasing agitation and disruptive behavior. Pt came from [facility] care unit after attempted exit seeking, hitting other residents with metal towel dispenser, hitting staff, and displaying paranoid behavior. Medical consult for admission H&P. 11/06 no aggression, taking medications, some bilat action tremors, suspect exacerbated with risperidone. may change to olanzapine 11/07- decrease risperidone to 0.5mg po BID due to tremors. scheduled dose of trazodone 50mg po qhs. 11/08 increase trazodone 50mg po qhs, additional prn. 11/09 increase trazodone again to 100mg po qhs. added melatonin 6mg po qhs. 11/10 keep same treatment 11/11 keep same treatment 11/12 continue tx. 11/13 continue tx. 11/14 continue tx. 11/15 continue tx. dc tomorrow. Reason for continued inpatient stay Substantial Risk for: inability to function Time Spent With Patient Time: Total time managing care of this patient today ____ minutes.
[2023-11-16 09:30] VITALS: BMI 25.9
[2023-11-16 09:57] VITALS: BP 137/56; PULSE 73; RESP 16; TEMP 36.6; O2SAT 98
[2023-11-16] MEDS: Propranolol HCL 20 MG TABLET PO (09:58)
[2023-11-16] MEDS: amLODIPine Besylate 2.5 MG TABLET PO (09:58)
[2023-11-16] MEDS: risperiDONE 0.5 MG TABLET PO ×2 (09:58→20:23)
[2023-11-16 15:02] LABS: COVID-19 Test Negative (Negative); IDNOW Serial# 152EDE1D
[2023-11-16 20:00] VITALS: BP 159/70; PULSE 80; RESP 20; TEMP 36.2; O2SAT 96
[2023-11-16] MEDS: Donepezil HCl 5 MG TABLET PO (20:24)
[2023-11-16] MEDS: OLANZapine 5 MG TABLET PO (20:24)
[2023-11-16] MEDS: Melatonin 3 MG TABLET 6 MG PO (20:24)
[2023-11-16] MEDS: traZODone HCL 100 MG TABLET PO (20:25)
[2023-11-17] MEDS: Levothyroxine Sodium 112 MCG, Levothyroxine Sodium 25 MCG 137 MCG PO (05:43)
--- NOTE | 2023-11-17 08:12 | P.DS_ITS ---
DS: Providers Provider Date of Service: 11/17/23 Date of admission: 11/02/23 20:14 Date of discharge: 11/17/23 Primary care physician: Unknown Physician Consults: 11/02/23 22:17 Consult to Hospitalist Routine Comment: Consulting Provider: Hospitalist Reason For Exam: admission physical Discharging clinician: Chioma Mondragon DS: Diagnosis Discharge Diagnosis (1) Major neurocognitive disorder due to Alzheimer's disease, with behavioral disturbance: Status: Acute DS: Medications Discharge Medications Home Medications: Previous Rx's ?Medication ?Instructions ?Recorded amlodipine 2.5 mg tablet 2.5 mg PO DAILY #30 tabs 11/14/23 donepezil 5 mg tablet 5 mg PO BEDTIME #30 tabs 11/14/23 levothyroxine 137 mcg tablet 137 mcg PO DAILY@0600 #30 tabs 11/14/23 melatonin 3 mg tablet 6 mg (2 x 3 mg) PO BEDTIME #60 tabs 11/14/23 propranolol 20 mg tablet 20 mg PO DAILY #30 tabs 11/14/23 risperidone 0.5 mg tablet 0.5 mg PO BID #60 tabs 11/14/23 trazodone 100 mg tablet 100 mg PO BEDTIME #30 tabs 11/14/23 Mental Status Exam Mental Status Exam Narrative: Appearance: wearing casual clothing, good hygiene, in NAD Behavior: cooperative and friendly Psychomotor: no agitation or retardation noted Speech: clear, normal rate/rhythm/volume, spontaneous TP: linear TC: feeling well Mood: good Affect: congruent SI: none HI: none VH/AH: none Delusions: currently no overt delusions, confabulation noted. Insight/judgment: impaired x 2. Memory/cog: alert, not oriented to place, month, year, date or situation. MOCA completed on 11/03/2023--> scored 12/03 with deficits in visuo spatial, executive function, recall, language fluency, orientation. ACL 4.4 Data Data Completed and Pending Completed studies during hospitalization [Text1]: 11/16/23 14:40 COVID-19 (BREE) Negative COVID-19 Clin Com See Note DS: Summary Hospital Course Hospital Course: Mrs. Almanza is an 83 year-old woman with hx of AD who initially was brought to [facility] on 10/13 due to combative behaviors, paranoid ideas in setting of dementia. She was started on seroquel. She was on observation in their psych obs unit and discharged on 10/30/23 to [facility] where she soon after arriving presented as combative, trying to hit other residents with metal towel dispenser, verbally abusive, trying to get out of the facility. She was brought back to [facility] ED same day. Pertinent labs include, cbc mostly unremarkable, cmp with no electrolytes abnormalities, BUN 14, Cr 0.81, creatinine clearance of 73. UA was negative. EKG on 10/23/23 normal sinus rhythm, non specific T wave abnormality. Qtc 424. She had brain MRI that showed moderate atrophy, periventricular and subcortical white matter and medical right frontal lobe atrophy. Pt seen on the unit. She presents as calm and cooperative but is not oriented to place, month, date or situation. She thinks she came here as volunteer. 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 She denies any physical pain. She reports sleeping and eating well. When asked about depression, she denies. No SI/HI. No overt psychosis or delusions during interview, but pt has been reporting that people are stealing from her. She also has difficulty recognizing family members including boyfriend of 9 years with whom she was living prior to being brought to ED who she thinks is a stranger. Collateral information gather from [id number], Shelby and son Darren, who report that mother has been living with DINA Saenz for 9 years, she has been more confused, not oriented, paranoid that people are stealing from her along from not recognizing Dany and thinking is an intruder. Shelby reports plan is for pt o stabilized from paranoid and combative behaviors and return to [facility]. Medical Evaluation Reviewed: Yes HOSPITAL COURSE On the unit, pt was admitted on a CV signed by HCP. She presented as pleasant but not oriented to place, nor situation nor month nor year. After discussing risks, benefits and alternative treatment options, pt was started on aricept for AD. She was also started on low dose risperidone for some paranoia. She was started on trazodone for sleep as well as melatonin. She did not show any signs of aggression towards self or others while on the unit. Her sleep did improve most night sleeping about 6 hrs but had times with less sleep but no agitation noted. We had family meeting to discuss diagnosis, treatment and dispo. Plan for Mrs. Almanza to return to memory unit at [facility]. Status at Discharge Cognitive/behavioral status at discharge: Pt pleasant on approach. No SI/HI. No overt delusional content noted or reported. Sleeping most of the night. No aggression towards self or others. Functional status at discharge: independent ambulation Overall status at discharge: patient is back to baseline Time Spent with Patient Time attestation: Total time managing care of this patient today __35__ minutes. Time spent: Greater than 30 minutes Discharge Plan Discharge Anticipated Discharge Date/Time: 11/17/23 08:10 Patient Disposition: Home, Self-Care Discharge Diagnosis: Major Neurocognitive Disorder, AD type Referrals: [facility] [Other] - 11/17/23 9:30 am (Transfer back to [facility] for assisted living and you will be followed by Felecia Johnson NP for primary care at the facility. ) [facility] [Other] - 2 Months (You have been referred for psychiatry follow up services with [facility] at [address] [place] [address]. Due to insurance barriers related to your plan for [employer] Supplemental medicare insurance and the cancellation of the policy on 11/04/23 an appointment can not be made at this time. The cancellation must be reflected on the general medicare portal and we were informed on 11/15/23 that this cross cancellation from [employer] to Medicare can take up to 60 days. A copy of your cancellation of the policy was sent directly to [facility] on 11/16/23. Please follow up with their intake department at [phone] (press 2, and then press 1) after 01/03/24 to schedule your appointment. ) Discharge Medications: New levothyroxine 137 mcg Tablet 137 mcg PO DAILY@0600 Qty: 30 0RF donepezil 5 mg Tablet 5 mg PO BEDTIME Qty: 30 0RF amlodipine 2.5 mg Tablet 2.5 mg PO DAILY Qty: 30 0RF Protocol: Hold for SBP< HOLD for SBP < : 90 melatonin 3 mg Tablet 6 mg PO BEDTIME Qty: 60 0RF trazodone 100 mg Tablet 100 mg PO BEDTIME Qty: 30 0RF propranolol 20 mg Tablet 20 mg PO DAILY Qty: 30 0RF Protocol: Hold for SBP/HR < HOLD for SBP < : 90 HOLD for HR < : 60 risperidone 0.5 mg Tablet 0.5 mg PO BID Qty: 60 0RF Discontinued quetiapine 25 mg tablet 25 mg PO BID levothyroxine 137 mcg tablet 137 mcg PO QAM trazodone 50 mg tablet 100 mg PO BEDTIME famotidine 40 mg tablet 40 mg PO BID pantoprazole 40 mg tablet,delayed release (DR/EC) 40 mg PO QAM propranolol 20 mg tablet 20 mg PO DAILY quetiapine 25 mg tablet 25 mg PO Q6H PRN (Reason: Agitation) trazodone 50 mg Tablet 50 mg PO BEDTIME PRN (Reason: Insomnia) hydroxyzine HCl 50 mg Tablet 50 mg PO QID PRN (Reason: Anxiety) Discharge Orders: Discharge Order (Routine); Ordered 11/17/23 Ordered By: Chioma Mondragon Diet: Regular diet Activity on Discharge: As tolerated Stand Alone Forms: Patient Portal Discharge page, Community Support Print Language: Upper Sorbian Care Plan Goals: maintain mood no aggression towards self or others Health Concerns: follow up with PCP for routine care Plan of Treatment: take medications as prescribed go to nearest ED or call 911 in event of emergency Assessment: Pt with bright, non labile affect. No SI/HI. No psychosis or delusions. Sleeping for the most part improved. No aggression nor combative behaviors. Discharge Date/Time: 11/17/23 10:20
[2023-11-17 08:19] VITALS: BP 148/67; PULSE 78; RESP 16; TEMP 36.7; O2SAT 100
[2023-11-17] MEDS: amLODIPine Besylate 2.5 MG TABLET PO (08:28)
[2023-11-17] MEDS: Propranolol HCL 20 MG TABLET PO (08:28)
[2023-11-17] MEDS: risperiDONE 0.5 MG TABLET PO (08:28)
== END 2023-11-17 10:20 | disposition home or self-care (01) | DRG 57 ==
PROVIDERS: Psychiatry & Neurology Psychiatry; Social Worker; Admitting Provider Psychiatry & Neurology Psychiatry; Visit Provider Psychiatry & Neurology Psychiatry
DX: G30.9 Alzheimer's disease, unspecified (principal); F02.818 Dementia in other diseases classified elsewhere, unspecified severity, with other behavioral disturbance; E03.9 Hypothyroidism, unspecified; K21.9 Gastro-esophageal reflux disease without esophagitis; I10 Essential (primary) hypertension; Z20.822 Contact with and (suspected) exposure to COVID-19; Z87.891 Personal history of nicotine dependence; Z79.890 Hormone replacement therapy; Z79.899 Other long term (current) drug therapy
CPT/HCPCS: 36415; 80053; 80061; 83036; 84439; 84443; 87635

== ENCOUNTER → 2023-11-02 20:14 | Outpatient (BNV) | payer MEDICARE, SELFPAY | PROVIDERS: Admitting Provider Psychiatry & Neurology Psychiatry; Visit Provider Student in an Organized Health Care Education/Training Program | DX: Z02.2 Encounter for examination for admission to residential institution (principal) | CPT/HCPCS: 99429 ==

== ENCOUNTER → 2023-11-02 20:14 | Outpatient (BNV) | payer MEDICARE, OTHER, SELFPAY | PROVIDERS: Admitting Provider Psychiatry & Neurology Psychiatry; Visit Provider Social Worker | DX: G30.9 Alzheimer's disease, unspecified (principal); F02.818 Dementia in other diseases classified elsewhere, unspecified severity, with other behavioral disturbance | CPT/HCPCS: 90792; 99231; 99232; 99239 ==